=== PATIENT | female | born 1930 | race Caucasian/White ===

== ENCOUNTER 2016-12-26 16:23 | Inpatient (IN) ==
[2016-12-26] MEDS ORDERED: DEPO-MEDROL IM ONE (17:37)
[2016-12-26] MEDS ORDERED: ALBUTEROL NEB INH ONE (17:40)
[2016-12-26 17:59] LABS: MANUAL DIFF NEEDED? NO
[2016-12-26 18:06] LABS: BASO% 0.4 % (0.0-0.8); EOS# 0.43 X1000 (0.0-0.7); EOS% 4.8 % (0.0-10.0); HEMATOCRIT 37.7 % (37.0-47.0); HEMOGLOBIN 12.9 g/dL (12.0-16.0); LYMPH# 1.11 X1000 (1.2-3.4); LYMPH% 12.4 % (20.5-51.1); MCH 34.1 PG (27-31); MCHC 34.2 g/dL (33-37); MCV 99.7 FL (81-99); MONO# 0.78 X1000 (0.11-0.59); MONO% 8.7 % (1.7-9.3); MPV 10.9 FL (7.4-10.4); NEUT% 73.7 % (42.2-75.2); PLT 224 X1000 (130-400); RBC 3.78 XMIL (4.2-5.4)
[2016-12-26 18:22] LABS: AGAP 14; BUN 12 mg/dL (8-22); CALCIUM 9.2 mg/dL (8.8-10.2); CHLORIDE 94 mmol/L (98-107); COSMO 269; POTASSIUM 4.8 mmol/L (3.5-5.1); SODIUM 135 mmol/L (136-145); TCO2 27 mmol/L (25-35)
[2016-12-26] MEDS ORDERED: AFRIN NASAL SPRAY NAS ONE (19:03)
[2016-12-26] MEDS ORDERED: LASIX IV ONE (19:03)
[2016-12-26] MEDS ORDERED: DUONEB (A & A) INH ONE (19:22)
--- NOTE | 2016-12-26 19:26 | PROVIDER DOCUMENTATION ---
HPI-Respiratory General - General Chief Complaint: Shortness of Breath Stated Complaint: SOB Time Seen by Provider: 12/26/16 19:05 Source: patient Allergies/Adverse Reactions: Patient Allergies Allergy/AdvReac Type Severity Reaction Status Date / Time cephalexin monohydrate * Allergy SHORTNESS Verified 12/26/16 16:45 [From Keflex] OF BREATH erythromycin base Allergy SWELLING Verified 12/26/16 16:45 meperidine HCl * Allergy SHORTNESS Verified 12/26/16 16:45 [From Demerol] OF BREATH moxifloxacin HCl * Allergy SHORTNESS Verified 12/26/16 16:45 [From Avelox] OF BREATH Penicillins Allergy SWELLING Verified 12/26/16 16:45 Home Medications: Home Medication List Medication Instructions Recorded Confirmed Last Taken Type Albuterol Sulfate Inhaler 8 gm INH PRN PRN 12/26/16 12/26/16 12/26/16 History [Ventolin Hfa] Aspirin [Aspir-Low] 81 mg PO DAILY 12/26/16 12/26/16 12/26/16 History Ipratropium/Albuterol INH 120 puff .SEE ORDER PRN PRN 12/26/16 12/26/16 History [Combivent Respimat Inhaler] Metoprolol Succinate E.r. [Toprol 25 mg PO DAILY 12/26/16 12/26/16 12/26/16 History Xl] - History of Present Illness-Resp Nature of Presenting Problem: 86 yof c/o SOB, wheezing and feels like she cant get any oxygen at the moment. Quality of Pain: reports: none Severity in ED: reports: moderate Onset/Duration: reports: 2 days ago Timing: reports: still present Review of Systems - Adult - REVIEW OF SYSTEMS - ADULT Constitutional: reports: see HPI Eyes: reports: no symptoms reported Ears, Nose, Mouth & Throat: reports: no symptoms reported Cardiovascular: reports: no symptoms reported Respiratory: reports: see HPI, cough, dyspnea on exertion, shortness of breath, wheezing Gastrointestinal: reports: no symptoms reported Genitourinary: reports: no symptoms reported Musculoskeletal: reports: no symptoms reported Integumentary: reports: no symptoms reported All Other Systems: Reviewed and Negative Past History - Adult - PAST MEDICAL HISTORY-ADULT Review of Records: reports: Old Records Reviewed, Nursing Assessment Review, Medications Reviewed, Social history reviewed & non-contributory. Physical Exam-General - PHYSICAL EXAM-ADULT Initial Vital Signs Reviewed: Yes - CONSTITUTIONAL General Appearance: appears well, alert, moderate distress (due to SOB) - EYES Eyes: PERRL/EOMI, pink conjunctivae - HEAD, EARS, NOSE, MOUTH & THROAT HENMT: normocephalic/atraumatic, moist mucous membranes, normal ENT inspection, TMs normal, pharynx normal - NECK Neck: non-tender, full range of motion, supple, normal inspection - RESPIRATORY Respiratory: chest non-tender, no pleuratic chest pain, respiratory distress, decreased breath sounds, wheezing - CARDIOVASCULAR Cardiovascular: normal peripheral pulses, no edema, no gallop, no JVD, no murmur - GASTROINTESTINAL (ABDOMEN) Abdominal Exam: normal bowel sounds, non tender, soft - LYMPHATIC Lymphatic: no adenopathy - MUSCULOSKELETAL Back Exam: normal inspection, no CVA tenderness, no vertebral tenderness Extremity: normal range of motion, non-tender, normal gait, normal inspection, no pedal edema, no calf tenderness, normal capillary refill - SKIN Integumentary: normal color, normal turgor, warm/dry - NEUROLOGIC Neurologic: grossly normal - PSYCHIATRIC Psych/Mental Status: normal mood/affect, normal thought content, normal thought process, oriented x 3 Progress - PLAN OF CARE/RESULTS Progress/Plan/Lab Results: Vital Signs - 8 hr 12/26/16 16:35 12/26/16 17:39 12/26/16 18:54 Temperature 98.5 F Pulse Rate 99 H 102 H 109 H Respiratory Rate 31 H 28 H 25 H Blood Pressure 155/77 149/59 O2 Sat by Pulse Oximetry 98 92 L 98 12/26/16 19:28 12/26/16 19:35 Temperature 97.9 F Pulse Rate 109 H Respiratory Rate 30 H Blood Pressure 165/115 O2 Sat by Pulse Oximetry 100 Laboratory Results - last 24 hr 12/26/16 12/26/16 17:55 17:55 WBC 8.93 RBC 3.78 L Hgb 12.9 Hct 37.7 MCV 99.7 H MCH 34.1 H MCHC 34.2 RDW Std Deviation 13.1 Plt Count 224 MPV 10.9 H Immature Gran % (Auto) 0.0 Neut % (Auto) 73.7 Lymph % (Auto) 12.4 L [place] % (Auto) 8.7 Eos % (Auto) 4.8 Baso % (Auto) 0.4 Immature Gran # (Auto) 0.00 Neut # (Auto) 6.57 H Lymph # (Auto) 1.11 L [place] # (Auto) 0.78 H Eos # (Auto) 0.43 Baso # (Auto) 0.04 Sodium 135 L Potassium 4.8 Chloride 94 L Carbon Dioxide 27 Anion Gap 14 BUN 12 Creatinine 0.6 Estimated GFR/1.73 m2 > 60 BUN/Creatinine Ratio 20 Glucose 86 Calculated Osmolality 269 Calcium 9.2 Orders Category Date Time Status Oxygen Therapy- ED Nursing DIRECTED Care 12/26/16 17:39 Active Resuscitation Status Routine Care 12/26/16 19:07 Ordered Saline Loc NOW Care 12/26/16 19:02 Active CHEST-2 VIEWS [RAD] Stat Exams 12/26/16 17:36 Taken ABG [RESP] Routine Lab 12/26/16 19:23 Ordered BASIC METABOLIC PANEL [CHEM] Stat Lab 12/26/16 17:55 Completed CBC WITH DIFF [HEME] Stat Lab 12/26/16 17:55 Completed Albuterol 2.5MG/Ipratrop 0.5MG [Duoneb (A & A)] Med 12/26/16 19:22 Discontinued 3 ml INH NOW ONE Albuterol [Albuterol Neb] Med 12/26/16 17:40 Discontinued 1.25 mg INH NOW ONE Furosemide [Lasix] Med 12/26/16 19:03 Discontinued 20 mg IV NOW ONE Methylprednisolone Acetate [Depo-Medrol] Med 12/26/16 17:37 Discontinued 40 mg IM NOW ONE Oxymetazoline Nasal [place] [Afrin Nasal [place]] Med 12/26/16 19:03 Discontinued 1 ml LAURA NOW ONE Aerosol Treatments Routine Oth 12/26/16 17:41 Completed Aerosol Treatments Routine Oth 12/26/16 19:22 Active Aerosol Treatments Stat Oth 12/26/16 17:41 Completed Aerosol Treatments Stat Oth 12/26/16 19:22 Active Transfer/Admit Order [TRANSFER] Routine Transfer 12/26/16 19:07 Ordered PT seen by MLP in ED due to distress and needing something to help her breathing. This is Dr. Franco patient and will be admitted by him. Result Diagrams: 12/26/16 17:55 12/26/16 17:55 Departure - Departure Time of Disposition Decision: 19:38 DIAGNOSIS: Shortness of breath Disposition: ADMITTED INPATIENT 09 Certified Medical Emergency: Emergent Condition: Stable Referrals and Follow-Ups: Jay Osorio MD [Primary Care Provider] - Attestation - Physician/ YOSVANY Attestation Patient care was provided by Advanced Practice Provider:: Yes Advanced Practice Provider:: Alex Shoemaker Advanced Practice Provider documentation review:: The Mid-level provider documentation, treatment plan and medical decision making was reviewed by the physician who agrees with all treatment and medical decision making by the MLP. The physician spent face to face time with patient:: Yes (Dr. Osorio) Advanced Practice Provider documentation review:: The physician spent face to face time with this patient and agrees with all MLP documentation, treatment, and medical decision making by the MLP. See provider notes for further information.
[2016-12-26 19:57] LABS: ALLEN TEST YES; BLOOD TYPE ARTERIAL; DRAW SITE R BRACHIAL; METHB 1.8 % (0.0-1.5); O2(CT) 16.2 mL/dL (15.0-23.0); PCO2(98.6) 45 mmHg (35-45); PO2(98.6) 60 mmHg (60-100); SAMPLE BLOOD; SAO2 94.8 % (95.0-100.0); THB 12.7 g/dL (11.5-17.4); pH(98.6) 7.42 (7.35-7.45)
[2016-12-26 19:58] LABS: MODALITY CANNULA
--- NOTE | 2016-12-26 20:58 | HISTORY AND PHYSICAL ---
CHIEF COMPLAINT: Nasal congestion and shortness of breath. PRESENT ILLNESS: Mrs. Lewis is an 86-year-old white female with a long history of cigarette smoking and chronic obstructive pulmonary disease, but no recent hospital admissions. She presented to the emergency room this afternoon with a three to four-day history of progressive shortness of breath that did not respond to her usual albuterol or Combivent inhalers. She has also had several days of fairly increasingly severe nasal congestion, unable to breathe through her nose at all. She has a history of using Thien-Synephrine nose spray several times a day for perhaps the last year, although she admits it has been more frequent in the last 3-4 days. She has some persistent cough, but no sputum production. Has noticed chest tightness and some soreness in her chest from coughing. She has some oxygen at home which she uses mainly at night as needed in the past, but feels it has been ineffective due to her nose be and stuffed up in the nasal cannula. Earlier today she called my office wanting a prescription for a mask for her home O2. Evaluation in the emergency room, she has had a relatively unremarkable chest x-ray with some basically clear lung gonzalez with increased pulmonary vascular redistribution and perhaps tiny bilateral pleural effusions and somewhat suspicious for congestive heart failure, as well as chronic obstructive pulmonary disease. CBC and chemistry profile were unremarkable. PAST MEDICAL HISTORY: Previous history of paroxysmal atrial tachycardia, but no recent episodes on long-term low-dose metoprolol. HOME MEDICATIONS: Combivent, Respimat inhaler 2 puffs q.i.d., Toprol-XL 25 mg q.a.m., aspirin 81 mg daily. ALLERGIES: To cephalexin and erythromycin base, demerol, Avelox, and penicillins. FAMILY HISTORY: Noncontributory. SOCIAL HISTORY: She is a and lives alone. 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 She is normally independent in her activities of daily living and has no shortness of breath is not generally activity limiting symptom for her. REVIEW OF SYSTEMS: General: No headache, fever, chills, night sweats, or weight loss. HEENT Examination: Vision and hearing are adequate without recent changes. Respiratory: As above. No history of hemoptysis. Cardiovascular: No recent palpitations. No history of ischemic heart disease or congestive heart failure. No history of valvular heart disease. She had a fairly unremarkable echocardiogram done 12 years ago, but has not had a reason to get one since. Gastrointestinal: Appetite has been average and she says she is rarely hungry but eats to stay alive. No nausea, vomiting, diarrhea, constipation, melena, or bright red blood per rectum. Genitourinary: No dysuria, nocturia, or increased frequency of urination. Neurologic: No history of strokes or seizures. Psychiatric: No history of memory or mood disorders. PHYSICAL EXAMINATION: VITAL SIGNS: She is afebrile pulses at 99, respirations 31, blood pressure 155/77. O2 sat is 96% on 2 L nasal cannula. GENERAL APPEARANCE: Petite elderly white female who is sitting bolt upright on a stretcher with mild to moderate respiratory effort apparent from across the room. SKIN: Warm, pink, and dry without cyanosis. HEENT: Pupils equal, round, reactive to light. Extraocular movements intact. Oropharynx is benign. Nasal mucosa is pale and edematous with no visible pathway on speculum exam. NECK: Supple with no jugular venous distention, adenopathy, or thyromegaly. CHEST EXAMINATION: Initially a few wheezes. After one half strength albuterol treatment, she seemed worse with increased wheezing and reduced air movement. I am not appreciating any crackles. Breath sounds are symmetric. CARDIOVASCULAR: Regular tachycardia with occasional premature ventricular contractions. No S3, S4, or murmurs. ABDOMEN: Soft, flat, nontender, with active bowel sounds. EXTREMITIES: She has somewhat puffy ankles without actual edema. There is no cyanosis or clubbing. NEUROLOGIC EXAMINATION: She is alert. Recognizes me. Has good memory and mental status seems entirely normal. Cranial nerve examination is unremarkable. She moves all extremities on command. Gait is not tested. DATABASE: White blood count 8,900, hemoglobin 12.9, hematocrit 37.7%. Platelet count is normal. Sodium 135, BUN 12, creatinine 0.6, glucose 86. Chest x-ray, as noted above. ASSESSMENT: 1. Acute dyspnea with nasal congestion, probably viral upper respiratory infection with exacerbation of chronic obstructive pulmonary disease. 2. Possible congestive heart failure with chest x-ray suggesting this. We will review with radiologist in the morning. 3. History of paroxysmal atrial tachycardia, currently sinus tachycardia with occasional premature ventricular contractions. TREATMENT PLAN: Admit for intravenous steroids, oral antibiotics, around the clock nebulizer treatments, and low-flow nasal O2. She should be better in a day or two and able to return home. cc: Jay Osorio MD
[2016-12-26] MEDS ORDERED: AMBIEN PO PRN (22:23)
[2016-12-26] MEDS ORDERED: TYLENOL PO PRN (22:23)
[2016-12-26] MEDS: HEPARIN SUBQ SCH (23:05)
[2016-12-26] MEDS: ALBUTEROL NEB INH SCH (23:20)
[2016-12-27] MEDS: DOXYCYCLINE PO SCH ×3 (00:23→21:12)
[2016-12-27] MEDS: ALBUTEROL NEB INH SCH ×6 (03:35→23:55)
[2016-12-27] MEDS: AFRIN NASAL SPRAY NAS SCH ×2 (07:34→18:03)
[2016-12-27] MEDS: SOLU-MEDROL IV SCH ×2 (07:34→18:04)
[2016-12-27 07:38] LABS: AGAP 10; BUN 10 mg/dL (8-22); CHLORIDE 94 mmol/L (98-107); COSMO 270; POTASSIUM 4.9 mmol/L (3.5-5.1); SODIUM 135 mmol/L (136-145); TCO2 31 mmol/L (25-35)
--- NOTE | 2016-12-27 07:39 | Diag Imaging Result Document ---
PROCEDURE NAME: CHEST-2 VIEWS - 12/26/2016 CHEST X-RAY, 2 VIEWS: COMPARISON: 02/17/2015. FINDINGS: Stable hyperexpanded lungs compatible with advanced COPD. Stable calcified granulomas bilaterally. There are new Vicky B lines in the lung bases suggesting interstitial pulmonary edema. There is also pulmonary vascular congestion. Heart size is slightly enlarged. IMPRESSION: Cardiomegaly and mild pulmonary edema. Advanced COPD.
[2016-12-27] MEDS ORDERED: LASIX IV ONE (08:20)
[2016-12-27] MEDS: HEPARIN SUBQ SCH ×2 (08:42→21:12)
[2016-12-27] MEDS ORDERED: TOPROL XL PO SCH (09:00)
--- NOTE | 2016-12-27 09:46 | EKG Report ---
Test Performed on : 12/27/2016 09:32:59 AM Test Reason : CP Blood Pressure : / mmHG Vent. Rate : 096 BPM Atrial Rate : 096 BPM P-R Int : 172 ms QRS Dur : 074 ms QT Int : 374 ms P-R-T Axes : 086 -35 079 degrees QTc Int : 472 ms Sinus rhythm. with frequent premature ventricular complexes. Left axis deviation Anteroseptal infarct , age undetermined Abnormal ECG No previous ECGs available Confirmed by Devon VICK, Jay Ruiz ([id number]) on 12/27/2016 8:40:30 PM
[2016-12-28] MEDS ORDERED: ATIVAN IV ONE (00:46)
[2016-12-28] MEDS: ALBUTEROL NEB INH SCH ×5 (04:48→19:48)
[2016-12-28] MEDS ORDERED: ATIVAN PO ONE (05:35)
[2016-12-28] MEDS: AFRIN NASAL SPRAY NAS SCH (06:12)
[2016-12-28] MEDS: SOLU-MEDROL IV SCH (06:12)
[2016-12-28] MEDS ORDERED: SOLU-MEDROL IV ONE (07:51)
[2016-12-28] MEDS ORDERED: ATIVAN PO PRN (07:56)
[2016-12-28] MEDS: HEPARIN SUBQ SCH ×2 (08:09→21:32)
[2016-12-28] MEDS: LASIX IV SCH (08:09)
[2016-12-28] MEDS ORDERED: ALBUTEROL NEB INH SCH (09:00)
[2016-12-28] MEDS: ATROVENT NEB INH SCH ×3 (09:20→19:48)
[2016-12-28] MEDS ORDERED: HALDOL IM ONE (11:14)
[2016-12-28 12:24] LABS: ALLEN TEST NO; BE 6.5 mmoll (-3.0-3.0); BLOOD TYPE ARTERIAL; DRAW SITE R BRACHIAL; METHB 1.8 % (0.0-1.5); O2(CT) 17.1 mL/dL (15.0-23.0); PO2(98.6) 66 mmHg (60-100); SAMPLE BLOOD; SAO2 95.6 % (95.0-100.0); THB 13.3 g/dL (11.5-17.4); pH(98.6) 7.31 (7.35-7.45)
[2016-12-28 12:26] LABS: MODALITY CANNULA; PCO2(98.6) 70 mmHg (35-45)
[2016-12-28] MEDS ORDERED: ATIVAN IV PRN (14:51)
[2016-12-28] MEDS ORDERED: SOLU-MEDROL IV SCH ×2 (15:00→20:00)
--- NOTE | 2016-12-28 15:17 | ECHO REPORT ---
ORDER DATE: 12/27/2016 INTERPRETING PHYSICIAN: Dr. Srinivasa Villalpando ECHOCARDIOGRAPHIC MEASUREMENTS: Interventricular septum: 1.3 cm. Left ventricular posterior wall: 1.3 cm. Diastolic diameter: 3.5 cm. Left atrium: 4.4 cm. Aortic root: 2.6 cm. SUMMARY OF THE 2-DIMENSIONAL IMAGIN. Normal left ventricular cavity size. Estimated ejection fraction of 65-70%. There is left ventricular hypertrophy. 2. Aortic valve leaflets are calcified. Mitral valve was normal. Tricuspid valve was normal. Pulmonic valve was normal. 3. Peak velocity across the aortic valve was 3.3 m/sec. Aortic valve area by VTI was 3.1 square cm. There is a mean gradient of 22 mmHg. There is mild aortic stenosis. 4. There is severe mitral regurgitation. There is moderate tricuspid regurgitation. Peak velocity across the tricuspid valve was 3.5 m/sec. Pulmonary artery systolic pressure 56 mmHg. There is pulmonary arterial hypertension. 5. There is anterior echo-free space, small, suggestive of pericardial fat pad. There is no obvious intracardiac mass or thrombus seen. cc: MD Jay Bates MD
[2016-12-28 15:49] LABS: ALLEN TEST YES; BE 9.9 mmoll (-3.0-3.0); BLOOD TYPE ARTERIAL; DRAW SITE R RADIAL; METHB 1.6 % (0.0-1.5); O2(CT) 17.3 mL/dL (15.0-23.0); PO2(98.6) 178 mmHg (60-100); SAMPLE BLOOD; SAO2 100.7 % (95.0-100.0); THB 12.5 g/dL (11.5-17.4); pH(98.6) 7.38 (7.35-7.45)
[2016-12-28 15:51] LABS: MODALITY BI PAP; PCO2(98.6) 63 mmHg (35-45)
--- NOTE | 2016-12-28 15:57 | Diag Imaging Result Document ---
PROCEDURE NAME: CHEST-PORTABLE - 12/28/2016 PORTABLE CHEST X-RAY: COMPARISON: 12/26/2016. FINDINGS: Lung volumes are lower. Stable COPD changes. There is cardiomegaly and pulmonary vascular congestion. There is decrease in the interstitial pulmonary edema. IMPRESSION: COPD. Decrease in the pulmonary edema.
[2016-12-28] MEDS ORDERED: LASIX IV ONE ×2 (18:34→23:00)
[2016-12-28 18:35] LABS: URINE MICRO REVIEW NEEDED? NO; URINE SOURCE CATH
[2016-12-28 18:42] LABS: BILIRUBIN URINE NEGATIVE (NEGATIVE); BLOOD URINE NEGATIVE (NEGATIVE); COLOR YELLOW; GLUCOSE URINE NEGATIVE (NEGATIVE); LEUKOCYTES URINE TRACE (NEGATIVE); NITRITE URINE NEGATIVE (NEGATIVE); PROTEIN URINE TRACE mg/dL (NEGATIVE); SP GRAVITY URINE 1.009; TURBIDITY URINE HAZY (CLEAR); UR EPITHELIAL CELLS <10 /HPF (<10); URINE BACTERIA 3+ /HPF; URINE CULTURE NEEDED? YES; URINE RBC <10 /HPF (<10); URINE WBC <10 /HPF (<10); UROBILINOGEN URINE NORMAL (NORMAL)
--- NOTE | 2016-12-28 19:33 | CONSULTATION ---
DATE OF CONSULTATION: 12/28/2016 IMPRESSION: 1. Acute systolic heart failure in the setting of severe mitral regurgitation. There is also a component of cor pulmonale related to pulmonary hypertension with underlying chronic obstructive pulmonary disease and mitral regurgitation. 2. Severe chronic obstructive pulmonary disease requiring chronic home oxygen. 3. History of previous atrial tachycardia. RECOMMENDATIONS: 1. Diurese further if there still remains some signs of volume overload. 2. Add low-dose angiotensin converting enzyme inhibitor as tolerated. 3. Conservative cardiovascular care overall given patient's age and apparent frailty. HISTORY: This 86-year-old, white female, with a past history of chronic cigarette use and severe COPD was admitted with worsening dyspnea refractory to her usual approaches to remedy COPD exacerbation. She has not been hospitalized in some time and so this is unusual for her. She has had progressive dyspnea over the past 4 days or so. There is some associated sinus congestion and cough but no significant sputum production. There is also some chest tightness. She has not noted any swelling. She is on chronic home oxygen therapy. She was treated for COPD exacerbation as an outpatient but failed to improve and came to the hospital for this reason. She has been found to have some signs of congestive heart failure including pulmonary vascular congestion. B- type natriuretic peptide level is significantly elevated. She is being diuresed cautiously. Echocardiography indicated severe mitral regurgitation and mild aortic stenosis. Left ventricular ejection fraction is normal. She is currently on BiPAP. PAST MEDICAL HISTORY: 1. Severe COPD. 2. Paroxysmal atrial arrhythmias. ALLERGIC: She is allergic or intolerant to Keflex, erythromycin, Demerol, Avelox and penicillin. SOCIAL HISTORY: She is a and lives alone. 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 FAMILY HISTORY: Negative for premature coronary disease. REVIEW OF SYSTEMS: Pulmonary: Noteworthy for dyspnea and nonproductive cough. Gastrointestinal: Negative. Constitutional: Negative for fever. Remainder of review of systems negative/noncontributory with 14 total systems reviewed. PHYSICAL EXAMINATION: Vital Signs: Elderly white female, wearing BiPAP with mild respiratory discomfort and increased respiratory rate. Blood pressure 110-115/70 . Heart rate 108 and regular with ECG monitor showing sinus tachycardia. HEENT Examination: Extraocular movements intact. Mucous membranes are moist. Neck: Supple. Jugular distention is evident consistent with elevated central venous pressure. Chest: Auscultation of the chest reveals diminished air movement bilaterally with scant wheezing. Cardiac Examination: Reveals a regular rate and rhythm without appreciable murmur or gallop. Abdomen: Soft, nontender. Bowel sounds are normal. Extremities: Without edema. Neurologic Examination: Reveals her to be alert and oriented. Speech is fluent. She moves all 4 extremities equally well. LAB DATA: Remarkable for significantly elevated B type nitrate peptide level of 3666. White blood cell count on presentation was 8.9, hematocrit 37, BUN is 10, creatinine 0.6. cc: MD Jay Antonio MD
[2016-12-28] MEDS: CAPOTEN PO SCH (21:31)
[2016-12-28] MEDS: ATIVAN PO SCH (21:32)
--- NOTE | 2016-12-28 23:01 | CONSULTATION ---
DATE OF CONSULTATION: 12/28/2016 REQUESTING PHYSICIAN: Dr. Jay Osorio. REASON FOR CONSULTATION: Acute on chronic respiratory failure. HISTORY OF PRESENT ILLNESS: Ms Lewis is an 86-year-old white female, with severe COPD, who was admitted through the emergency room, on 12/26/2016, with increasing shortness of breath. Chest x- ray, revealed cardiomegaly with some increase in heart size over the last 2 years, along with increased vascular congestion. This evening, she developed progressive respiratory distress, and an arterial blood gas revealed a pH 7.31, pCO2 of 70, pCO2 of 66. She was transferred to the intensive care unit and placed on Bi-PAP, and received a diuretic. She did not tolerate the Bi- PAP, and this was subsequently removed. Her shortness of breath has improved with diuresis. Family reports that she has been having episodes of "breathing attacks" over the last 6 to 12 months, and they have become progressive and more severe. Episodes typically occur at night, when she is in the bed. It improves when she sits up and uses a fan and her oxygen. She underwent echocardiogram during this hospitalization, which revealed moderate pulmonary hypertension along with severe mitral regurgitation. PAST MEDICAL HISTORY: Problem list: 1. Severe COPD with prior tobacco use. 2. Chronic hypoxemic respiratory failure. 3. Hypertension. 4. History of paroxysmal atrial tachycardia. SOCIAL HISTORY: Prior tobacco use. 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 She currently has a granddaughter who lives in and stays with her 24 hours a day. REVIEW OF SYSTEMS: Negative except as noted in the HPI. PHYSICAL EXAMINATION: General: Reveals a frail, chronically ill-appearing, white female, with a BMI of less than 19. vital signs: BP 146/82, heart rate 106, respiration rate 26, oxygen saturation 95% on 2 L. HEENT: Pupils are equal and reactive. Oropharynx is clear. Neck: Supple. Chest: Reveals prolonged expiratory phase with faint distant wheezing. Cardiac: Distant heart sounds. Normal S1, normal S2. Severe mitral regurg cannot be appreciated on examination. Abdomen: Soft. Back: Reveals trace edema. Extremities: Reveal trace to 1+ edema. LABORATORIES: Chest x-ray reveals COPD, cardiomegaly, and pulmonary vascular congestion, but decrease in edema. IMPRESSION: An 86-year-old with severe COPD, acute hypoxemic and hypercapnic respiratory failure, which may have been triggered by a combination of the pulmonary edema, due to severe mitral regurgitation, and to acute cor pulmonale. The patient is currently reluctant to use the Bi-PAP. She also refuses to have a Foster catheter placed. RECOMMENDATIONS: 1. Continue diuretics as tolerated. 2. Continue oxygen to maintain saturation greater than 90%. 3. Would decrease steroid dosing to prevent steroid psychosis in an elderly patient. 4. Medication adjustment for valvular abnormalities as per Cardiology. 5. With progressive symptomatology over the last year, her prognosis is guarded, and if she has continued decline in her performance status, hospice could be considered at that juncture. cc: MD Jay Nelson MD
[2016-12-29 05:16] LABS: ALLEN TEST YES; BE 13.6 mmoll (-3.0-3.0); BLOOD TYPE ARTERIAL; DRAW SITE R RADIAL; METHB 1.9 % (0.0-1.5); O2(CT) 16.3 mL/dL (15.0-23.0); PO2(98.6) 97 mmHg (60-100); SAMPLE BLOOD; SAO2 99.3 % (95.0-100.0); THB 12.1 g/dL (11.5-17.4); pH(98.6) 7.49 (7.35-7.45)
[2016-12-29 05:17] LABS: MODALITY CANNULA; PCO2(98.6) 51 mmHg (35-45)
[2016-12-29 06:06] LABS: HEMATOCRIT 36.8 % (37.0-47.0); HEMOGLOBIN 12.6 g/dL (12.0-16.0); MCH 34.4 PG (27-31); MCHC 34.2 g/dL (33-37); MCV 100.5 FL (81-99); MPV 11.5 FL (7.4-10.4); RBC 3.66 XMIL (4.2-5.4)
[2016-12-29] MEDS: CAPOTEN PO SCH (06:06)
[2016-12-29] MEDS: SOLU-MEDROL IV SCH ×2 (06:06→17:37)
[2016-12-29 07:01] LABS: AGAP 17; ALBUMIN 3.9 g/dL (3.5-5.0); ALKALINE PHOSPHATASE 76 U/L (32-104); BUN 26 mg/dL (8-22); CHLORIDE 90 mmol/L (98-107); COSMO 280; GOT 37 U/L (10-30); GPT 67 U/L (10-36); MAGNESIUM 2.2 mg/dL (1.5-2.7); POTASSIUM 3.9 mmol/L (3.5-5.1); SODIUM 137 mmol/L (136-145); TCO2 30 mmol/L (25-35); TOTAL BILIRUBIN 0.33 mg/dL (0.20-1.00); TOTAL PROTEIN 7.3 g/dL (6.3-8.3)
--- NOTE | 2016-12-29 07:23 | Diag Imaging Result Document ---
PROCEDURE NAME: CHEST-PORTABLE - 12/29/2016 PORTABLE CHEST X-RAY: COMPARISON: 12/28/2016. FINDINGS: There is continued decrease in the interstitial pulmonary edema. Stable COPD changes. Stable pulmonary scarring. IMPRESSION: Continued improvement in the pulmonary edema.
[2016-12-29] MEDS: ATROVENT NEB INH SCH ×3 (08:15→22:53)
[2016-12-29] MEDS ORDERED: NS 250 ML IV ONE (08:30)
[2016-12-29] MEDS: HEPARIN SUBQ SCH ×2 (09:00→21:19)
[2016-12-29] MEDS: LASIX IV SCH (09:00)
[2016-12-29] MEDS: ALBUTEROL NEB INH SCH ×4 (09:34→19:21)
--- NOTE | 2016-12-29 10:45 | EKG Report ---
Test Performed on : 12/29/2016 10:03:23 AM Test Reason : irregular pulse Blood Pressure : / mmHG Vent. Rate : 140 BPM Atrial Rate : 088 BPM P-R Int : 000 ms QRS Dur : 076 ms QT Int : 314 ms P-R-T Axes : 000 000 063 degrees QTc Int : 479 ms Atrial fibrillation. with rapid ventricular response. with premature ventricular or aberrantly condu cted complexes. Anteroseptal infarct (cited on or before 27-DEC-2016) Abnormal ECG When compared with ECG of 27-DEC-2016 09:32, Atrial fibrillation. has replaced Sinus rhythm. ST now depressed in Inferior leads Confirmed by Devon VICK, Jay Ruiz ([id number]) on 12/30/2016 9:39:41 PM
--- NOTE | 2016-12-29 10:45 | PROGRESS NOTE ---
DATE: 12/29/2016 SUMMARY: Patient feeling much better this morning following additional diuresis last night. She relates that she had not slept well in over a week. She denies dyspnea or chest pain. PHYSICAL EXAMINATION: Vital Signs: Blood pressure 103/70, heart rate 116, with ECG monitor showing what appears to be sinus rhythm with paroxysms of irregular supraventricular tachycardia, either MAT versus atrial fibrillation. Neck: Jugular venous pressure appears normal. Chest: Auscultation of the chest reveals diminished breath sounds in the right base. There are some coarse crackles in the left base posteriorly. Cardiac Examination: Reveals a regular rate and rhythm without appreciable murmur or gallop. There is no evidence of peripheral edema. LAB DATA: Includes a BUN of 26, creatinine 0.6, potassium 3.9. IMPRESSION: 1. Acute systolic heart failure, now improved with diuresis. Suspect underlying valvular heart disease culprit. Echocardiography reviewed and there appears to be moderate aortic stenosis with aortic valve area of 1.2 cm2 and severe mitral regurgitation with left ventricle demonstrating an ejection fraction of 70%. Interestingly, inferior vena cava collapsed on inspiration, suggesting normal central venous pressure. 2. Moderate aortic stenosis and severe mitral regurgitation. 3. Severe chronic obstructive pulmonary disease. RECOMMENDATIONS: 1. Drop back to Lasix once daily. Consider transition to oral Lasix soon. 2. Given moderate aortic stenosis, would not push afterload reduction given the fixed nature of her afterload related to the aortic stenosis and potential for hypotension as a consequence. 3. Conservative cardiovascular management overall. cc: MD Jay Antonio MD
[2016-12-29] MEDS ORDERED: CARDIZEM IV ONE (11:41)
[2016-12-29] MEDS ORDERED: CARDIZEM 100 MG/NS 100 MG/100 ML IVPB IV SCH (11:41)
[2016-12-29] MEDS ORDERED: CARDIZEM CD PO ONE (20:15)
[2016-12-29] MEDS: SEPTRA DS PO SCH (21:19)
[2016-12-29] MEDS: ATIVAN PO SCH (21:19)
[2016-12-30] MEDS ORDERED: ATIVAN PO PRN (01:46)
[2016-12-30] MEDS: CARDIZEM CD PO SCH ×2 (02:03→21:11)
[2016-12-30] MEDS: SOLU-MEDROL IV SCH ×2 (06:04→17:36)
[2016-12-30] MEDS: ATROVENT NEB INH SCH ×3 (07:37→22:57)
[2016-12-30] MEDS: ALBUTEROL NEB INH SCH ×4 (08:09→20:13)
[2016-12-30] MEDS: SEPTRA DS PO SCH ×2 (08:20→21:12)
[2016-12-30] MEDS: HEPARIN SUBQ SCH ×2 (08:20→21:12)
[2016-12-30] MEDS ORDERED: LASIX PO SCH (09:00)
[2016-12-30] MEDS ORDERED: LASIX IV SCH (09:00)
--- NOTE | 2016-12-30 13:45 | PROGRESS NOTE ---
DATE: 12/30/2016 SUBJECTIVE: Patient relates feeling much better. She denies shortness of breath on supplemental oxygen per nasal cannula. OBJECTIVE: Vital Signs: Blood pressure 114/36, heart rate 64 and regular. Jugular venous pressure appears to be normal based on inspection of neck veins. Chest: Auscultation of the chest reveals a few coarse crackles in left base posteriorly and diminished breath sounds in the right base with somewhat diminished breath sounds diffusely. Cardiac Exam: Reveals a regular rate and rhythm without appreciable murmur or gallop. There is no evidence of peripheral edema. IMPRESSION: 1. Acute systolic heart failure now improved with diuresis. Underlying valvular heart disease with moderate aortic stenosis and severe mitral regurgitation demonstrated on echocardiography. 2. Severe COPD. 3. Transient atrial fibrillation. RECOMMENDATIONS: 1. Continue Lasix once daily orally at this point. 2. Conservative cardiovascular plan overall. Patient's condition and care plan discussed with his son. cc: MD Jay Antonio MD
[2016-12-30] MEDS: ATIVAN PO SCH (21:11)
[2016-12-31 05:11] LABS: ALLEN TEST YES; BE 15.6 mmoll (-3.0-3.0); BLOOD TYPE ARTERIAL; DRAW SITE R RADIAL; METHB 1.9 % (0.0-1.5); MODALITY CANNULA; O2(CT) 17.3 mL/dL (15.0-23.0); PCO2(98.6) 47 mmHg (35-45); PO2(98.6) 95 mmHg (60-100); SAMPLE BLOOD; SAO2 99.5 % (95.0-100.0); THB 12.8 g/dL (11.5-17.4); pH(98.6) 7.54 (7.35-7.45)
[2016-12-31] MEDS: SOLU-MEDROL IV SCH ×2 (05:12→17:21)
[2016-12-31] MEDS: ALBUTEROL NEB INH SCH ×3 (08:29→20:36)
[2016-12-31] MEDS: ATROVENT NEB INH SCH ×3 (08:30→22:29)
--- NOTE | 2016-12-31 09:03 | PROGRESS NOTE ---
DATE: 12/31/2016 SUBJECTIVE: Ms. Lewis has a history of acute congestive heart failure secondary to systolic dysfunction and aortic stenosis. She has been diuresed aggressively. She has put out nearly 4 L of fluid in the past 3 days. She reports that she is breathing much more comfortably. O2 saturations are ranging from 97% to 98% on supplemental O2. She normally wears nocturnal home oxygen. She also was admitted with an acute chronic obstructive pulmonary disease exacerbation. She is taking nebulizer treatments, and IV Solu-Medrol. Urine cultures grew out Proteus mirabilis. She is on Septra DS. She denies any fever chills nausea, vomiting, dysuria or increased urinary frequency. PHYSICAL EXAMINATION: Vital Signs: Temperature 97.9 degrees, pulse 91, respirations 18, BP 121/52. CV: Regular rate and rhythm. Lungs: Distant breath sounds with scattered end- expiratory wheezing. Abdomen: Soft, nontender with active bowel sounds. Extremities: Without edema. ASSESSMENT AND PLAN: 1. Acute congestive heart failure secondary to systolic dysfunction. 2. Acute chronic obstructive pulmonary disease exacerbation. 3. Urinary tract infection. We will continue her on a salt and fluid restricted diet. We will switch her to Lasix 40 mg daily. We will continue aggressive blood pressure control. I will recheck a PA and lateral chest x-ray today. She is still wheezing a little bit. I am going to continue ipratropium breathing treatments, supplemental O2, but I do not feel that we can back down on the IV steroids anymore today. We will continue the Bactrim DS for the underlying urinary tract infection. cc: MD Jay Segura MD
[2016-12-31] MEDS: HEPARIN SUBQ SCH ×2 (09:09→20:46)
[2016-12-31] MEDS: LASIX PO SCH (09:09)
[2016-12-31] MEDS: SEPTRA DS PO SCH ×2 (09:09→20:46)
[2016-12-31] MEDS: CARDIZEM CD PO SCH (20:45)
[2016-12-31] MEDS: ATIVAN PO SCH ×2 (20:46→20:48)
[2017-01-01] MEDS: SOLU-MEDROL IV SCH (05:26)
[2017-01-01] MEDS: ATROVENT NEB INH SCH (08:10)
[2017-01-01] MEDS: ALBUTEROL NEB INH SCH (08:10)
[2017-01-01 08:28] VITALS: BP 116/71
[2017-01-01] MEDS: LASIX PO SCH (10:07)
[2017-01-01] MEDS: HEPARIN SUBQ SCH (10:07)
[2017-01-01] MEDS: SEPTRA DS PO SCH (10:08)
[2017-01-01] MEDS ORDERED: PREDNISONE PO SCH (11:00)
--- NOTE | 2017-01-01 11:06 | Diag Imaging Result Document ---
PROCEDURE NAME: CHEST-PORTABLE - 01/01/2017 PORTABLE CHEST: Compared with 12/29/2016. FINDINGS: Heart size appears normal. There are apparent COPD changes. There has been interval decrease in perihilar infiltrates or edema. There are upper lung calcified granulomas from old granulomatous disease. There is no pleural effusion or pneumothorax identified. IMPRESSION: COPD changes. Decrease in perihilar infiltrates or edema.
[2017-01-02] MEDS ORDERED: PREDNISONE PO SCH (09:00)
[2017-01-03] MEDS ORDERED: PREDNISONE PO SCH (09:00)
[2017-01-06] MEDS ORDERED: PREDNISONE PO SCH (09:00)
== END 2017-01-01 11:11 | disposition home or self-care (01) ==
LOC: ED 16:23 → 3N 21:14 → ICU 12-28 14:39 → 3N 12-30 01:37
PROVIDERS: ADMIT Internal Medicine; ATTEND Internal Medicine

== ENCOUNTER 2017-02-15 23:22 | Inpatient (IN) ==
[2017-02-15] MEDS ORDERED: SOLU-MEDROL IV ONE (23:27)
[2017-02-15] MEDS ORDERED: ALBUTEROL NEB INH ONE (23:27)
[2017-02-15] MEDS ORDERED: DUONEB (A & A) INH ONE (23:27)
[2017-02-15 23:47] LABS: MANUAL DIFF NEEDED? NO
[2017-02-15] MEDS ORDERED: ATIVAN IV ONE (23:47)
[2017-02-15 23:52] LABS: BASO% 0.5 % (0.0-0.8); EOS# 0.51 X1000 (0.0-0.7); EOS% 3.9 % (0.0-10.0); HEMATOCRIT 37.9 % (37.0-47.0); HEMOGLOBIN 12.8 g/dL (12.0-16.0); IMM GRAN# 0.02 X1000 (0.0-0.04); IMM GRAN% 0.2 % (0.0-0.5); LYMPH# 3.04 X1000 (1.2-3.4); LYMPH% 23.5 % (20.5-51.1); MCH 33.6 PG (27-31); MCHC 33.8 g/dL (33-37); MCV 99.5 FL (81-99); MONO# 0.97 X1000 (0.11-0.59); MONO% 7.5 % (1.7-9.3); NEUT% 64.4 % (42.2-75.2); PLT 319 X1000 (130-400); RBC 3.81 XMIL (4.2-5.4)
[2017-02-16 00:42] LABS: ALLEN TEST YES; BE 12.7 mmoll (-3.0-3.0); BLOOD TYPE ARTERIAL; DRAW SITE R RADIAL; O2(CT) 16.8 mL/dL (15.0-23.0); PO2(98.6) 498 mmHg (60-100); SAMPLE BLOOD; SAO2 100.8 % (95.0-100.0); THB 11.2 g/dL (11.5-17.4); pH(98.6) 7.46 (7.35-7.45)
[2017-02-16 00:43] LABS: MODALITY BI PAP
[2017-02-16 00:44] LABS: PCO2(98.6) 54 mmHg (35-45)
[2017-02-16 00:45] LABS: AGAP 11; ALBUMIN 4.1 g/dL (3.5-5.0); ALKALINE PHOSPHATASE 107 U/L (32-104); BUN 11 mg/dL (8-22); CHLORIDE 88 mmol/L (98-107); COSMO 270; GOT 38 U/L (10-30); GPT 35 U/L (10-36); POTASSIUM 4.2 mmol/L (3.5-5.1); SODIUM 133 mmol/L (136-145); TCO2 34 mmol/L (25-35); TOTAL BILIRUBIN 0.39 mg/dL (0.20-1.00); TOTAL PROTEIN 6.9 g/dL (6.3-8.3)
[2017-02-16] MEDS ORDERED: LASIX IV ONE (00:58)
--- NOTE | 2017-02-16 01:11 | PROVIDER DOCUMENTATION ---
This chart was entered by Lucina Carpenter Scribe, acting as scribe for Donovan Herrera MD. HPI-Respiratory General - General Chief Complaint: Shortness of Breath Stated Complaint: RESP. DISTRESS Time Seen by Provider: 02/15/17 23:26 Source: patient Allergies/Adverse Reactions: Patient Allergies Allergy/AdvReac Type Severity Reaction Status Date / Time cephalexin monohydrate * Allergy SHORTNESS Verified 02/16/17 00:20 [From Keflex] OF BREATH erythromycin base Allergy SWELLING Verified 02/16/17 00:20 meperidine HCl * Allergy SHORTNESS Verified 02/16/17 00:20 [From Demerol] OF BREATH moxifloxacin HCl * Allergy SHORTNESS Verified 02/16/17 00:20 [From Avelox] OF BREATH Penicillins Allergy SWELLING Verified 02/16/17 00:20 Home Medications: Home Medication List Medication Instructions Recorded Confirmed Last Taken Type Aspirin [Aspir-Low] 81 mg PO DAILY 12/26/16 02/16/17 02/15/17 History Diltiazem C.d. [Cardizem Cd] 240 mg PO QHS #30 capsule 01/01/17 02/16/17 20:00 Rx Furosemide [Lasix] 40 mg PO DAILY tablet 01/01/17 02/16/17 02/15/17 Rx Metoprolol Succinate 25 mg PO DAILY 02/07/17 02/16/17 02/15/17 History Albuterol [Albuterol Neb] 2.5 mg INH Q4H PRN PRN 02/16/17 02/16/17 02/15/17 History - History of Present Illness-Resp Nature of Presenting Problem: 86 Y/O F presents to ED with Respiratory distress. Pt was brought in by EMS, due to Shortness of Breath Pt states that she had increased Respiratory distress starting 3 days ago. Pt idenied Fever, chills, chest pain. Severity in ED: reports: severe Onset/Duration: reports: 3 days ago Timing: reports: still present Associated Symptoms: reports: shortness of breath. denies: chest pain/soreness , fever/chills Review of Systems - Adult - REVIEW OF SYSTEMS - ADULT Constitutional: reports: no symptoms reported Eyes: denies: discharge Ears, Nose, Mouth & Throat: denies: ear pain, sinus problem, throat pain Cardiovascular: reports: edema. denies: chest pain Respiratory: reports: cough, shortness of breath, wheezing Gastrointestinal: denies: abdominal pain, diarrhea, nausea, vomiting Genitourinary: denies: dysuria, flank pain Musculoskeletal: denies: back pain, neck pain Integumentary: denies: rash Neurological: denies: headache/migraines, numbness, paresthesia Psychiatric: reports: no symptoms reported Endocrine: reports: no symptoms reported Hematologic/Lymphatic: reports: no symptoms reported Allergic/Immunologic: reports: no symptoms reported All Other Systems: Reviewed and Negative Past History - Adult - PAST MEDICAL HISTORY-ADULT Review of Records: reports: Old Records Reviewed, Nursing Assessment Review, Medications Reviewed, Social history reviewed & non-contributory. Major Childhood Illnesses: reports: denies history Cardiovascular: reports: HTN Respiratory: reports: asthma, COPD - PRIOR SURGERIES/PROCEDURES Surgical/Procedure History: reports: none - IMMUNIZATION STATUS Childhood Immunizations: See Nurse Assessment Flu Vaccine: See Nurse Assessment - SOCIAL HISTORY Smoking: less than 1 pack/day Physical Exam-General - PHYSICAL EXAM-ADULT Initial Vital Signs Reviewed: Yes - CONSTITUTIONAL General Appearance: alert, moderate distress - EYES Eyes: PERRL/EOMI, pink conjunctivae - HEAD, EARS, NOSE, MOUTH & THROAT HENMT: moist mucous membranes, normal ENT inspection, TMs normal - NECK Neck: non-tender, full range of motion, supple - RESPIRATORY Respiratory: crackles, wheezing - CARDIOVASCULAR Cardiovascular: normal peripheral pulses - GASTROINTESTINAL (ABDOMEN) Abdominal Exam: non tender, soft - MUSCULOSKELETAL Back Exam: normal inspection Extremity: normal range of motion - SKIN Integumentary: normal color, normal turgor, warm/dry - NEUROLOGIC Neurologic: grossly normal - PSYCHIATRIC Psych/Mental Status: normal mood/affect, normal thought content, normal thought process, oriented x 3 Progress - PLAN OF CARE/RESULTS Progress/Plan/Lab Results: Vital Signs - 8 hr 02/15/17 23:25 02/15/17 23:59 02/16/17 00:21 Temperature 97.6 F Pulse Rate 142 H 114 H 104 H Respiratory Rate 40 H 29 H 30 H Blood Pressure 172/130 148/75 O2 Sat by Pulse Oximetry 100 100 99 Laboratory Results - last 24 hr 02/15/17 02/15/17 02/15/17 23:20 23:30 23:30 WBC 12.94 H RBC 3.81 L Hgb 12.8 Hct 37.9 MCV 99.5 H MCH 33.6 H MCHC 33.8 RDW Std Deviation 13.6 Plt Count 319 MPV 11.0 H Immature Gran % (Auto) 0.2 Neut % (Auto) 64.4 Lymph % (Auto) 23.5 [place] % (Auto) 7.5 Eos % (Auto) 3.9 Baso % (Auto) 0.5 Immature Gran # (Auto) 0.02 Neut # (Auto) 8.33 H Lymph # (Auto) 3.04 [place] # (Auto) 0.97 H Eos # (Auto) 0.51 Baso # (Auto) 0.07 Specimen Type Sample Site pH pCO2 pO2 HCO3 Base Excess Oxyhemoglobin ABG O2 Sat (Calculated) ABG O2 Saturation ABG Carboxyhemoglobin ABG Methemoglobin Wilbert Test A-a O2 Difference Total Hemoglobin Lactate Blood Gas Modality Vent Mode FiO2 % Inspiratory BiPAP Expiratory BiPAP Sodium 133 L Potassium 4.2 Chloride 88 L Carbon Dioxide 34 Anion Gap 11 BUN 11 Creatinine 0.6 Estimated GFR/1.73 m2 > 60 BUN/Creatinine Ratio 18 Glucose 182 H Calculated Osmolality 270 Calcium 9.0 Total Bilirubin 0.39 AST 38 H ALT 35 Alkaline Phosphatase 107 H Troponin T Jeh-W-Gkelfrwtyaw Pept Total Protein 6.9 Albumin 4.1 Globulin 2.8 Albumin/Globulin Ratio 1.5 Plasma Lactate 1.8 02/15/17 02/15/17 02/16/17 23:30 23:30 00:33 WBC RBC Hgb Hct MCV MCH MCHC RDW Std Deviation Plt Count MPV Immature Gran % (Auto) Neut % (Auto) Lymph % (Auto) [place] % (Auto) Eos % (Auto) Baso % (Auto) Immature Gran # (Auto) Neut # (Auto) Lymph # (Auto) [place] # (Auto) Eos # (Auto) Baso # (Auto) Specimen Type ARTERIAL Sample Site R RADIAL pH 7.46 H pCO2 54 H* pO2 498 H HCO3 34.9 H Base Excess 12.7 H Oxyhemoglobin 98.1 ABG O2 Sat (Calculated) 16.8 ABG O2 Saturation 100.8 H ABG Carboxyhemoglobin 1.70 ABG Methemoglobin 1.0 Wilbert Test YES A-a O2 Difference 148.0 Total Hemoglobin 11.2 L Lactate 1.00 Blood Gas Modality BI PAP Vent Mode BIPAP FiO2 % 100.0 Inspiratory BiPAP 20.0 Expiratory BiPAP 8.0 Sodium Potassium Chloride Carbon Dioxide Anion Gap BUN Creatinine Estimated GFR/1.73 m2 BUN/Creatinine Ratio Glucose Calculated Osmolality Calcium Total Bilirubin AST ALT Alkaline Phosphatase Troponin T 0.036 Ref-I-Hlfrptvffcr Pept 4597 H Total Protein Albumin Globulin Albumin/Globulin Ratio Plasma Lactate Orders Category Date Time Status CHEST-PORTABLE [RAD] Stat Exams 02/15/17 23:48 Taken ABG [RESP] Routine Lab 02/16/17 00:33 Completed CBC WITH ELECTRONIC DIFF [HEME] Stat Lab 02/15/17 23:30 Completed CMP [COMPREHENSIVE METABOLIC PANEL] [CHEM] Stat Lab 02/15/17 23:30 Completed LACTATE, PLASMA [CHEM] Stat Lab 02/16/17 00:04 Completed TROPONIN T Stat Lab 02/15/17 23:30 Completed pro-bnp [PRO B-NATRIURETIC PEPTIDE] Stat Lab 02/15/17 23:30 Completed Albuterol 2.5MG/Ipratrop 0.5MG [Duoneb (A & A)] Med 02/15/17 23:27 Discontinued 3 ml INH NOW ONE Albuterol [Albuterol Neb] Med 02/15/17 23:27 Discontinued 5 mg INH NOW ONE Furosemide [Lasix] Med 02/16/17 00:58 Discontinued 40 mg IV NOW ONE Lorazepam [Ativan] Med 02/15/17 23:47 Discontinued 0.5 mg IV NOW ONE Methylprednisolone Sod Succ [Solu-Medrol] Med 02/15/17 23:27 Discontinued 125 mg IV NOW ONE Aerosol Treatments Routine Oth 02/15/17 23:27 Active Aerosol Treatments Stat Oth 02/15/17 23:27 Active BIPAP Stat Oth 02/15/17 23:27 Active EKG [EKG] Stat Ther 02/15/17 23:25 Ordered Result Diagrams: 02/15/17 23:30 02/15/17 23:30 - REASSESSMENT Reassessment #1 Time Reassessed: 01:09 (pt now sleeping and breathing much easier) Status: improving - EKG 1 Time of EKG reading by physician:: 23:57 EKG Read and Signed by:: Donovan Herrera EKG Interpretation (*Must complete 3 of following elements*): Abnormal Rate: 140 Rhythm: Sinus Tachycardia w/ 1st degree AV block with frequent PVC Dana: right (rightward) Comments: Abnormal ECG,Anteroseptal - XRAY 1 XRAY Study: Chest Impression: Abnormal Comparison with other Films: no changes (12/26/16) XRAY Interpretation: COPD Departure - Departure Time of Disposition Decision: :10 DIAGNOSIS: COPD exacerbation CHF (congestive heart failure) Qualifiers: Congestive heart failure type: unspecified congestive heart failure type Congestive heart failure chronicity: acute on chronic Qualified Code(s): I50.9 - Heart failure, unspecified Disposition: ADMITTED INPATIENT 09 Certified Medical Emergency: Emergent Condition: Fair Referrals and Follow-Ups: Jay Osorio MD [Primary Care Provider] - - Critical Care Note This patient required my direct & personal management of CC.: No This chart was documented by the indicated scribe, (Lucina Carpenter Scribrashaun) and accurately reflects the services I performed and decisions made by me, Donovan Herrera MD, as attested by the provider's signature.
[2017-02-16] MEDS: DUONEB (A & A) INH SCH ×2 (03:52→07:37)
--- NOTE | 2017-02-16 03:54 | HISTORY AND PHYSICAL ---
PRIMARY CARE PHYSICIAN: Dr. Osorio. CHIEF COMPLAINT: Shortness of breath for 3-4 days. HISTORY OF PRESENTING ILLNESS: This 86-year-old elderly female with a history of CHF, COPD, paroxysmal atrial arrhythmias, and hypertension, presented to the emergency department with 3-4 days history of worsening shortness of breath. She is apparently on home O2, however she does not wear oxygen as instructed. She was seen in the ER. She was markedly dyspneic. She was given DuoNebs and put on BiPAP, and she had some improvement. At the time of my examination, she was somewhat sleepy, and most of her history was obtained from family members. As per family,, she was having more difficulty breathing, and they were concerned, and that is why the patient presented in the emergency department. PAST MEDICAL HISTORY: Includes CHF, COPD, paroxysmal atrial arrhythmia, hypertension. PAST SURGICAL HISTORY: None. ALLERGIES: Keflex, erythromycin, Demerol, Avelox, penicillin. CURRENT MEDICATIONS: Listed in the MAR. SOCIAL HISTORY: 60+ pack years history of smoking. No history of alcohol or illicit drug use. She lives with her granddaughter. FAMILY HISTORY: No history of coronary artery disease. REVIEW OF SYSTEMS: Limited, because patient is somewhat groggy, and most of the history is obtained from family members. PHYSICAL EXAMINATION: GENERAL: An elderly female. She is currently on BiPAP. VITAL SIGNS: Temperature 97.6 degrees, pulse 142, respirations 40, blood pressure 172/130. HEENT: Atraumatic, normocephalic. Extraocular movements intact. NECK: No masses. CHEST: Rhonchi. CARDIOVASCULAR: Tachycardic. ABDOMEN: Soft. Positive bowel sounds. EXTREMITIES: Trace edema. NEUROLOGIC: She is awake and arousable. GENITOURINARY: No bladder distention. SKIN: Warm. LABORATORIES AND STUDIES: WBC 12.94, hemoglobin 12.8, hematocrit 37.9, platelets 319,000. Sodium 133, potassium 4.2, chloride 88, CO2 34, BUN is 11, creatinine 0.6, glucose is 182. ProBNP is 4597. ASSESSMENT: An 86-year-old female with a history of CHF, COPD on home oxygen, paroxysmal atrial arrhythmia, and hypertension, who presented to the emergency department with 3-4 days history of worsening shortness of breath. She was apparently put on BiPAP in the ER, and she will need hospitalization for further management. 1. Acute chronic obstructive pulmonary disease exacerbation. 2. Acute congestive heart failure exacerbation with systolic dysfunction. 3. Paroxysmal atrial arrhythmias. 4. Hypertension. PLAN: 1. We will admit patient to medical floor with telemetry. 2. We will continue with DuoNebs, IV Solu-Medrol, and continue patient on BiPAP. 3. We will continue with gentle diuresis. 4. We will restart home medication. 5. Monitor blood pressure closely. 6. Put patient on deep venous thrombosis prophylaxis with sequential compression devices. 7. Continue to follow and reassess. cc: MD Jay Chang MD
--- NOTE | 2017-02-16 05:03 | EKG Report ---
Test Performed on : 02/15/2017 11:27:53 PM Test Reason : RESP DISTRESS Blood Pressure : / mmHG Vent. Rate : 140 BPM Atrial Rate : 140 BPM P-R Int : 216 ms QRS Dur : 068 ms QT Int : 272 ms P-R-T Axes : 061 092 047 degrees QTc Int : 415 ms Sinus tachycardia. with 1st degree AV block. with frequent premature ventricular complexes. Rightward axis Anteroseptal infarct (cited on or before 27-DEC-2016) Abnormal ECG When compared with ECG of 07-FEB-2017 23:10, fusion complexes are no longer present MN interval has increased QRS axis shifted right ST now depressed in Lateral leads Unconfirmed Result
--- NOTE | 2017-02-16 07:41 | Diag Imaging Result Doc PS360 ---
EXAM: CHEST-PORTABLE HISTORY: sob TECHNIQUE: Erect AP portable at 2355 COMMENT: There is reticulonodular interstitial opacity throughout both lungs. There are particular Vicky B lines present in the lower lung gonzalez particularly on the left. There is some calcified granulomata in the right upper lobe. The heart size is not enlarged. Compared to 02/07/2017 there has been no significant change. Compared to 12/26/2016 the interstitial opacities are somewhat worse. The possibility of pulmonary edema superimposed on interstitial fibrosis is suggested. IMPRESSION: Pulmonary fibrosis, granulomatous changes and possible pulmonary edema. Electronically signed by Darrell Sevilla 02/16/2017 7:39 AM
[2017-02-16] MEDS ORDERED: SOLU-MEDROL IV SCH (08:00)
[2017-02-16] MEDS ORDERED: TOPROL XL PO SCH (09:00)
[2017-02-16] MEDS: ASPIRIN EC PO SCH (09:18)
[2017-02-16] MEDS: LASIX IV SCH (12:09)
--- NOTE | 2017-02-16 13:09 | CONSULTATION ---
DATE OF CONSULTATION: 02/16/2017 REASON FOR CONSULTATION: Cardiology was consulted for severe mitral regurgitation, recurrent heart failure. 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 She was in the emergency room 3-4 days back with shortness of breath and, subsequently, was readmitted again with acute worsening of shortness of breath. Chest x-ray suggestive of pulmonary edema. She was recently also admitted on 12/28/2016 with similar diagnosis. She complains of having some discomfort, as she puts it, on her left shoulder radiating down to her left arm and over the precordium some discomfort as well she noted with these symptoms. Since being admitted to the hospital and undergoing therapy, she feels much better than compared to when she came into the hospital. There are no palpitations. There is no syncope. REVIEW OF SYSTEMS: A 14-point review of system was done. GI System: There is no history of nausea, vomiting, diarrhea. There is no history of hemoptysis or melena. Central nervous system: No focal weakness to suggest a CVA. GI: There is no dysuria or hematuria. PAST MEDICAL HISTORY: 1. Systolic heart failure with severe mitral regurgitation. 2. Pulmonary arterial hypertension. 3. COPD requiring home oxygen. 4. History of atrial arrhythmias in the past. 5. Hypertension. ALLERGIES: She is allergic to Keflex, erythromycin, Demerol, Avelox, penicillin. She has a history of smoking; quit about 30 years ago and, in the past, she says that she just held the cigarette lit and never inhaled it. There is no history of alcohol abuse. PHYSICAL EXAMINATION: Vital Signs: Blood pressure when she came in was 170/130. Today, her blood pressure is 101/50. Cardiovascular System: Normal jugular venous pressure. First and second heart sounds were heard. There was systolic murmur. Respiratory System: A few scattered wheeze. Abdomen was soft, nontender. There was no guarding or rigidity. Bowel sounds were heard. Central nervous system: Alert and was moving all 4 extremities. Extremities: Examination revealed no pedal edema. HEENT: Atraumatic, normocephalic. Pupils were equal and reacting to light. WBC 12.9, hemoglobin 12.8, hematocrit 37.9. Chemistry: Sodium 133, potassium 4.2. BUN 11, creatinine 0.6. ProBNP 4597. Chest x-ray: Pulmonary edema. Last echocardiogram on 12/20/2016 revealed ejection fraction of 65%-70% with severe mitral regurgitation. ASSESSMENT AND PLAN: Ms. Ruben Lewis is an 86-year-old lady with history of severe mitral regurgitation, recurrent heart failure, COPD who is admitted with recurrent pulmonary edema. She is currently euvolemic. She also had episode of chest discomfort radiating to her left shoulder and arm. Given this, I had a detailed discussion with the patient regarding performing right and left heart catheterization to assess for and rule out coronary artery disease and evaluate the mitral valve. She is willing to undergo the procedure. We will set her up to have a right and left heart catheterization. We will check a BMP, CBC, and magnesium levels in the morning. Continue with her current medications. Lasix has been decreased to 40 b.i.d. WBC mildly elevated. She has received methylprednisone. I have not made any changes. She is on nebulizers for her COPD. Would recommend continuing her current medications. Thank you for the consult. We will follow hospital course. cc: MD Jay Bates MD
[2017-02-16] MEDS: ALBUTEROL NEB INH SCH ×2 (15:53→21:45)
[2017-02-16] MEDS ORDERED: LOPRESSOR PO ONE (17:07)
[2017-02-16] MEDS ORDERED: CARDIZEM CD PO SCH (21:00)
[2017-02-16] MEDS ORDERED: CORDARONE 360 MG/D5W 360 MG/200 ML IV.SOLN IV ONE (21:45)
[2017-02-16] MEDS ORDERED: CORDARONE 150 MG/D5W 150 MG/100 ML IV.SOLN IV ONE (21:45)
[2017-02-16] MEDS ORDERED: CORDARONE 540 MG in D5W 289.2 ML IV ONE (21:45)
[2017-02-16] MEDS: SOLU-MEDROL IV SCH (21:54)
[2017-02-17] MEDS: LASIX IV SCH ×2 (01:09→12:26)
[2017-02-17] MEDS: ATIVAN IV PRN ×2 (02:44)
[2017-02-17] MEDS: ALBUTEROL NEB INH SCH ×4 (03:37→19:48)
--- NOTE | 2017-02-17 05:18 | EKG Report ---
Test Performed on : 02/16/2017 6:19:09 PM Test Reason : ST with PVC Blood Pressure : / mmHG Vent. Rate : 127 BPM Atrial Rate : 062 BPM P-R Int : 000 ms QRS Dur : 074 ms QT Int : 336 ms P-R-T Axes : 000 087 092 degrees QTc Int : 488 ms Atrial fibrillation. with rapid ventricular response. with premature ventricular or aberrantly condu cted complexes. Anteroseptal infarct (cited on or before 27-DEC-2016) Abnormal ECG When compared with ECG of 15-FEB-2017 23:27, Atrial fibrillation. has replaced Sinus rhythm. Confirmed by Aníbal VICK, Javier Suarez ([id number]) on 02/18/2017 1:15:14 PM
[2017-02-17] MEDS ORDERED: LASIX IV ONE (06:23)
[2017-02-17 06:26] LABS: BASO% 0.1 % (0.0-0.8); EOS# 0.01 X1000 (0.0-0.7); EOS% 0.1 % (0.0-10.0); HEMATOCRIT 39.2 % (37.0-47.0); HEMOGLOBIN 13.1 g/dL (12.0-16.0); IMM GRAN# 0.02 X1000 (0.0-0.04); IMM GRAN% 0.2 % (0.0-0.5); LYMPH# 0.86 X1000 (1.2-3.4); LYMPH% 6.6 % (20.5-51.1); MANUAL DIFF NEEDED? YES; MCH 33.3 PG (27-31); MCHC 33.4 g/dL (33-37); MCV 99.7 FL (81-99); MONO# 0.68 X1000 (0.11-0.59); MONO% 5.2 % (1.7-9.3); MPV 11.3 FL (7.4-10.4); NEUT% 87.8 % (42.2-75.2); PLT 318 X1000 (130-400); RBC 3.93 XMIL (4.2-5.4)
[2017-02-17 06:27] LABS: INR 1.09; PROTIME 11.5 Seconds (9.2-11.7)
[2017-02-17 06:54] LABS: BANDS 6 % (0-1); LYMPHS 6 % (21-51); MONO 6 % (1-9)
[2017-02-17 06:55] LABS: BE 2.2 mmoll (-3.0-3.0); BLOOD TYPE ARTERIAL; DRAW SITE R BRACHIAL; O2(CT) 18.4 mL/dL (15.0-23.0); PO2(98.6) 93 mmHg (60-100); SAMPLE BLOOD; SAO2 97.7 % (95.0-100.0); THB 13.7 g/dL (11.5-17.4); pH(98.6) 7.25 (7.35-7.45)
[2017-02-17 06:57] LABS: MODALITY BI PAP
[2017-02-17 06:58] LABS: PCO2(98.6) 72 mmHg (35-45)
[2017-02-17 07:05] LABS: CALCIUM 8.9 mg/dL (8.8-10.2); POTASSIUM 4.1 mmol/L (3.5-5.1)
--- NOTE | 2017-02-17 07:10 | Diag Imaging Result Doc PS360 ---
EXAM: CHEST-PORTABLE HISTORY: Breathing changes TECHNIQUE: AP upright portable at 0625 COMMENT: There is perihilar and upper lobe opacity which appears slightly worse than on the previous study of 02/15/2017. There is also some apparent volume loss and interstitial opacity in the left lower lobe. Some fluid is seen in the minor fissure on the right. IMPRESSION: Worsening pulmonary edema plus minus pneumonia. Small right pleural effusion. Electronically signed by Darrell Sevilla 02/17/2017 7:07 AM
[2017-02-17] MEDS ORDERED: TOPROL XL PO SCH (09:00)
--- NOTE | 2017-02-17 09:23 | PROGRESS NOTE ---
DATE: 02/17/2017 SUBJECTIVE: This is an 86-year-old, patient of Dr. Jay Osorio. She presented yesterday with a 3 or 4-day history of shortness of breath. She has a history of congestive heart failure, COPD, paroxysmal atrial fibrillation, hypertension, apparently severe mitral regurgitation. She is on home O2, although she does not wear it as instructed. Seen in the emergency room with marked dyspnea and given DuoNebs and BiPAP with some improvement. However, yesterday evening, respiratory status seemed to decline. She has not put out much urine output and her O2 saturations have gone down. She is less responsive. They were planning to do a left heart catheterization today but or looking at it, but we will have to cancel that. Dr. Villalpando has seen her and I think Dr. Christopher has seen her as well. OBJECTIVE: General: Today, lethargic and not responding but she does respond to pain. She does move all extremities. Neck: CVP distended neck veins. Vital Signs: Temp 96.5 degrees, pulse 80, respirations 20, blood pressure 170/81, pupils are equal and round. Lungs: Clear anterolateral. Cardiovascular: Irregular rhythm and irregular rate. Monitor shows atrial fibrillation. The rate is controlled between 50s and 100. LABORATORY DATA: White count this morning, 12,960, hematocrit 39, platelet count 318,000. Chemistry: Sodium 126, potassium 4.1, chloride 80, BUN 24, creatinine 0.9, blood sugar was 305, proBNP was 4597, CPK 78, troponin was 0.021. ASSESSMENT AND PLAN: 1. Severe mitral regurgitation. Suspect some underlying coronary insufficiency. Respiratory status has diminished. They do not want intubation. We will continue to try and treat with medication. I have told the family that she appears to be getting worse. They reinforced that they do not want her on a ventilator. Her his urine output looked to be about 500 mL yesterday. 2. Present orders: She is on amiodarone drip, aspirin 81 mg a day. Getting Lasix 40 mg q.12, methylprednisone 40 mg IV q.12 hours. Metoprolol succinate 25 mg b.i.d. We will work on her afterload reduction with her mitral regurgitation and see if this will help. I will add JOSELIN inhibitor, enalapril IV and see if this will help. 3. Atrial fibrillation rate appears to be controlled. 4. Blood pressure has been fluctuating but it is running a little higher at the present time. cc: MD Jay Garland MD
[2017-02-17] MEDS ORDERED: TOPROL XL PO ONE (09:33)
--- NOTE | 2017-02-17 11:09 | EKG Report ---
Test Performed on : 02/17/2017 09:35:18 AM Test Reason : afib Blood Pressure : / mmHG Vent. Rate : 079 BPM Atrial Rate : 079 BPM P-R Int : 178 ms QRS Dur : 078 ms QT Int : 412 ms P-R-T Axes : 087 068 078 degrees QTc Int : 472 ms Sinus rhythm. with occasional premature ventricular complexes. Septal infarct (cited on or before 27-DEC-2016) Abnormal ECG When compared with ECG of 16-FEB-2017 18:19, (Unconfirmed) Sinus rhythm. has replaced Atrial fibrillation. Vent. rate has decreased BY 48 BPM Nonspecific T wave abnormality now evident in Anterior leads Confirmed by Aníbal VICK, Javier Suarez ([id number]) on 02/18/2017 1:17:16 PM
[2017-02-17] MEDS: SOLU-MEDROL IV SCH ×2 (11:16→20:26)
[2017-02-17] MEDS: ASPIRIN EC PO SCH (11:16)
[2017-02-17] MEDS: CORDARONE PO SCH ×2 (11:16→20:26)
[2017-02-17] MEDS ORDERED: SAMSCA PO ONE (12:02)
[2017-02-17] MEDS: VASOTEC IV SCH ×2 (12:27→17:17)
[2017-02-17] MEDS: LOVENOX SUBQ SCH (13:51)
--- NOTE | 2017-02-17 15:24 | ECHO REPORT ---
ORDER DATE: 02/17/2017 MEASUREMENTS: Left ventricular end-diastolic diameter 3.2, end-systolic diameter 1.9, septal thickness 1.5, left atrium 3.8, aortic root 2.8 SUMMARY: 1. Fair quality study. 2. Moderate fibrocalcific changes of trileaflet aortic valve demonstrated with severely reduced mobility but visible aortic valve opening. Peak gradient across the aortic valve is 51 mmHg with a mean gradient of 24 mmHg. Using continuity equation and left ventricular outflow tract diameter estimated 1.9 cm, the resultant calculated aortic valve area is 0.8 cm2 suggesting severe aortic stenosis. Moderate thickening of mitral valve leaflets demonstrated with severe mitral regurgitation. Tricuspid valve without structural abnormality with mild tricuspid regurgitation. The estimated systolic PA pressure by Doppler is 35-40 mmHg. Pulmonic valve without structural abnormality with mild pulmonic insufficiency. Aortic root is normal in size. 3. Normal left ventricular chamber size with moderate concentric left hypertrophy is demonstrated. Estimated left ejection fraction is greater than 70%. No regional wall motion abnormalities are evident. Left atrium is borderline enlarged. Right atrium is borderline enlarged. The right ventricle appears mildly enlarged with moderately reduced right ventricular systolic function. 4. Small echo-free anterior space, possibly small anterior pericardial effusion. 5. Appearance of inferior vena cava suggests significantly elevated central venous pressure. Inferior vena cava is dilated and does not demonstrate any inspiratory collapse. CONCLUSIONS: 1. Severe calcific aortic stenosis. 2. Severe mitral regurgitation. 3. Mild tricuspid regurgitation with mild to moderate pulmonary hypertension by Doppler. 4. Moderate concentric left hypertrophy with estimated left ejection fraction greater than 70%. 5. Borderline biatrial enlargement. 6. Mild right ventricular enlargement with reduced right ventricular systolic function. 7. Elevated central venous pressure suggested. cc: MD Maia Antonio PA Russell T. Barr, MD
[2017-02-17 19:13] LABS: AGAP 8; BUN 22 mg/dL (8-22); CALCIUM 8.4 mg/dL (8.8-10.2); CHLORIDE 88 mmol/L (98-107); COSMO 271; POTASSIUM 3.8 mmol/L (3.5-5.1); SODIUM 133 mmol/L (136-145); TCO2 37 mmol/L (25-35)
[2017-02-17] MEDS ORDERED: AYR NASAL SPRAY NAS PRN (20:12)
[2017-02-17] MEDS: TOPROL XL PO SCH (23:47)
[2017-02-18] MEDS: LASIX IV SCH ×3 (01:24→23:38)
[2017-02-18] MEDS: LOVENOX SUBQ SCH ×3 (01:24→23:38)
[2017-02-18] MEDS: VASOTEC IV SCH ×3 (01:54→12:27)
[2017-02-18] MEDS: ALBUTEROL NEB INH SCH ×4 (04:08→19:32)
[2017-02-18 06:30] LABS: FREE T4 1.36 ng/dL (0.93-1.70)
[2017-02-18 06:41] LABS: AGAP 12; BUN 21 mg/dL (8-22); CALCIUM 8.4 mg/dL (8.8-10.2); CHLORIDE 89 mmol/L (98-107); COSMO 277; MAGNESIUM 2.4 mg/dL (1.5-2.7); POTASSIUM 3.7 mmol/L (3.5-5.1); SODIUM 136 mmol/L (136-145); TCO2 35 mmol/L (25-35)
[2017-02-18 07:01] LABS: HEMATOCRIT 32.9 % (37.0-47.0); HEMOGLOBIN 10.8 g/dL (12.0-16.0); IMM GRAN# 0.02 X1000 (0.0-0.04); IMM GRAN% 0.3 % (0.0-0.5); LYMPH# 0.36 X1000 (1.2-3.4); LYMPH% 4.7 % (20.5-51.1); MANUAL DIFF NEEDED? NO; MCH 32.6 PG (27-31); MCHC 32.8 g/dL (33-37); MCV 99.4 FL (81-99); MONO# 0.36 X1000 (0.11-0.59); MONO% 4.7 % (1.7-9.3); MPV 11.7 FL (7.4-10.4); NEUT% 90.3 % (42.2-75.2); PLT 248 X1000 (130-400); RBC 3.31 XMIL (4.2-5.4)
[2017-02-18] MEDS: SOLU-MEDROL IV SCH ×3 (08:40→21:47)
[2017-02-18] MEDS: CORDARONE PO SCH ×3 (08:40→21:46)
[2017-02-18] MEDS: TOPROL XL PO SCH ×3 (08:41→21:47)
[2017-02-18] MEDS: ASPIRIN EC PO SCH (08:41)
--- NOTE | 2017-02-18 09:07 | Diag Imaging Result Doc PS360 ---
EXAM: CHEST-PORTABLE INDICATION: chf TECHNIQUE: One view COMPARISON: 02/17/2017 FINDINGS: The perihilar and upper lobe infiltrates appear to have improved during the interval. No new consolidations are appreciated. Cardiac silhouette is stable. IMPRESSION: Improvement of upper lung zone and perihilar consolidations as described. Electronically signed by Mauro Chilel 02/18/2017 9:05 AM
--- NOTE | 2017-02-18 09:48 | PROGRESS NOTE ---
DATE: 02/18/2017 SUBJECTIVE: Ms. Lewis is much better. Awake and alert. Breathing comfortably. She wants to go home. She wants to get up and walk. OBJECTIVE: Vital signs: Temperature 98.1 degrees, pulse 80, respirations 21 blood pressure 91/50. HEENT: CVP was less than 6 cm. Lungs: Clear anterior and posterior in all lung gonzalez. Cardiovascular exam: Regular rhythm and rate. A 3/6 systolic ejection murmur appreciated at the left sternal border. : Her urine output 4 L. LABS AND X-RAYS: White count 7710, hematocrit 32, platelet count of 248,000. Sodium 136, potassium 3.7, chloride 89, BUN 21, creatinine 0.7. Of note, her T4 and TSH were normal. Cortisol level also normal. Chest x-ray from this morning: Improvement upper lung zone, perihilar consolidations, perihilar upper lobe infiltrates have improved. Echocardiogram with Doppler was done yesterday and showed severe calcific aortic stenosis, severe mitral regurgitation and mild tricuspid regurgitation, mild to moderate pulmonary hypertension, moderate concentric left ventricular hypertrophy, ejection fraction greater than 70%, borderline biatrial enlargement, mild right ventricular enlargement with reduced right ventricular systolic function. EKG was in sinus rhythm yesterday at 9 o'clock. Poor R-wave progression. Suspect old septal scar and occasional PVC. ASSESSMENT AND PLAN: 1. Severe mitral regurgitation. Aortic valve peak gradient was 51 mmHg with mean gradient of 24 mmHg. The left ventricular outflow tract diameter estimated at 1.9 cm, and the resulting calculated aortic valve area was 0.8 cm2 suggesting severe aortic stenosis and also possible underlying coronary artery disease. I think we will need to pursue left heart catheterization when we are able. Of note, she has good ejection fraction, but she has some right ventricular strain as well. It seems much better than yesterday. Continue present medication. Discuss with cardiology. 2. On amiodarone, she was in atrial fibrillation. She is in sinus rhythm. She has metoprolol 25 mg b.i.d., and we are diuresing her. It seems to have responded well to diuresis. 3. Atrial fibrillation. Back in sinus rhythm. 4. Her labs: Serum creatinine 0.7, which is very encouraging. Electrolytes look good. Sodium 136, potassium 3.7, chloride 89, BUN 21, creatinine 0.7. Review of her orders: Unremarkable. I do not see any changes. She got Samsca 1 dose on the second. She is getting Lasix 40 mg IV q. 12 hours. She is on amiodarone 400 mg b.i.d., aspirin 81 mg a day. She is getting enalapril 0.625 mg IV q. 6 hours. We will see if we can get physical therapy to get her up and walk at her request. Follow her electrolytes. Renal function looks good. Explore when we can perform a left heart catheterization. cc: MD Jay Garland MD
[2017-02-18] MEDS ORDERED: TYLENOL PO PRN (09:49)
[2017-02-18] MEDS ORDERED: AFRIN NASAL SPRAY NAS PRN (09:49)
--- NOTE | 2017-02-18 12:58 | PROGRESS NOTE ---
DATE: 02/18/2017 SUBJECTIVE: Ms. Lewis reports she feels well this morning. She has no shortness of breath presently. PHYSICAL EXAMINATION: Vital Signs: She is afebrile. Heart rate of 85. Her blood pressure is 105/47, and she has had occasionals in the 80s and 90s. Her I's and O's for the course of this hospitalization appear to be total negative of 1.6 L. General: In no acute distress. Cardiovascular: She does have a regular rate and rhythm and presence of a prominent 2/6 holosystolic murmur at the left lower sternal border. Abdomen: Soft, nontender, nondistended. She has no obvious organomegaly. Skin: Warm and dry throughout. Her echocardiogram checked on the 2nd demonstrates a mean gradient of 24. Valve area was calculated at 0.8 cm2 suggesting possibly severe aortic stenosis. In addition, she had severe mitral regurgitation. Ejection fraction was greater than 70%. Her laboratory data demonstrates a white count of 7.7, hematocrit is 32.9, platelet count is 248,000. Her sodium is 136, potassium 3.7, BUN 21, creatinine 0.7. ASSESSMENT: Congestive heart failure likely secondary to valvular issues including severe MR and possibly severe . I believe right and left heart catheterization would be appropriate if the patient would consider potential intervention to the valves. I am unclear if she is willing to do this as an inpatient presently and need to consider discussion of the ultimate procedures of potential mitral regurgitation intervention as well as aortic valve intervention prior to being willing to pursue an invasive evaluation. Presently, I would not increase her rate of diuresis considering that she has had some low blood pressures. She is on Vasotec at 0.625 IV q.6. I will try to switch that over to an oral medication with lisinopril. We will continue her on the metoprolol 50 b.i.d. She continues on amiodarone at 4:00 b.i.d. which I would continue for now. cc: MD Jay Murray MD
[2017-02-18] MEDS: PRINIVIL PO SCH ×2 (19:45→21:46)
[2017-02-19] MEDS: LASIX IV SCH ×3 (00:33→23:41)
[2017-02-19] MEDS: LOVENOX SUBQ SCH ×3 (00:34→23:41)
[2017-02-19] MEDS: ALBUTEROL NEB INH SCH ×2 (03:18→08:04)
[2017-02-19] MEDS ORDERED: POTASSIUM CHLORIDE 20% LIQUID PO ONE (08:02)
[2017-02-19] MEDS: SOLU-MEDROL IV SCH ×2 (08:40→19:46)
[2017-02-19] MEDS: TOPROL XL PO SCH ×3 (08:40→21:53)
[2017-02-19] MEDS: CORDARONE PO SCH ×3 (08:40→21:53)
[2017-02-19] MEDS: ASPIRIN EC PO SCH (08:40)
--- NOTE | 2017-02-19 08:40 | PROGRESS NOTE ---
DATE: 02/19/2017 SUBJECTIVE: Ms. Lewis is feeling good. She wants to go home. She is bored. She is breathing comfortably. No chest pain. OBJECTIVE: Vital signs: Temperature 98 degrees, pulse 70, respirations 20, blood pressure 102/60. HEENT: Pupils are equal, round. Lungs: Clear in all lung gonzalez anterior, lateral, posterior. Cardiovascular: Regular rate without murmur or S3. CVP is less than 8 cm. Skin: Warm and dry. : Urine output almost 2 L. LAB: Reviewed from yesterday. CBC: Hematocrit is stable at 32. Electrolytes look good. Serum creatinine was 0.7. ASSESSMENT AND PLAN: 1. Congestive heart failure. Likely secondary to valvular issues including severe MR, possible severe . Hope to get a right and left heart catheterization when able and consider possible intervention for valves. Unclear if she is willing to pursue this as an inpatient presently. She is improving clinically. We will continue present treatment. Dr. Page is following for cardiology. Increased rate of diuresis. She is on Vasotec 0.625 IV q.6 and switch that over to oral medication. Continue her metoprolol 50 mg b.i.d. and amiodarone 400 mg b.i.d. 2. Atrial fibrillation. On amiodarone for rate control. Appears to be back in sinus rhythm. 3. Renal function looks good. 4. Encourage p.o. intake and we are increasing her activity. REVIEW OF ORDERS: I do not see any change. She is on Lasix 40 mg IV q.12, Prinivil 10 mg at bedtime, methylprednisone 40 mg IV q.12 hours, metoprolol succinate 50 mg b.i.d., aspirin 81 mg a day, amiodarone 400 mg b.i.d. I am going to decrease her methylprednisone down to 20 mg IV q.12. cc: MD Jay Garland MD
--- NOTE | 2017-02-19 13:41 | Diag Imaging Result Doc PS360 ---
EXAM: CHEST-2 VIEWS INDICATION: pulmonary edema TECHNIQUE: 2 views COMPARISON: 02/18/2017 FINDINGS: The mild consolidations bilaterally are approximately stable. There is suggestion of small bilateral effusions, largest on the left. These are probably larger or have developed during the interval. Cardiac silhouette is stable. IMPRESSION: Development of small bibasilar effusions, largest on the left. Otherwise, essentially stable chest. Electronically signed by Mauro Chilel 02/19/2017 1:39 PM
[2017-02-19] MEDS ORDERED: LASIX IV ONE (13:45)
--- NOTE | 2017-02-19 14:08 | PROGRESS NOTE ---
DATE: 02/19/2017 SUBJECTIVE: Ms. Lewis reports she is somewhat short of breath but it does not seem like it is any worse than previous. OBJECTIVE: Vital signs: She is afebrile. Heart rate 73, blood pressure 118/58. General: No acute distress. Cardiovascular: She does not seem to have any lower extremity edema. She continues to have a holosystolic murmur at the left lower sternal border. Warm and well perfused lower extremities. Chest: Exam has some mild rales in the bilateral bases. No increased work of breathing. Abdomen: Soft, nontender. Skin Exam: Warm and dry throughout. PERTINENT DATA: She had a chest x-ray performed which demonstrated small bibasilar effusions, largest on the left. Otherwise essentially stable. Mild consolidations bilaterally noted. Her laboratory data demonstrated a proBNP that bumped to 8,834 from 4,597 on the . ASSESSMENT: Congestive heart failure, most likely valvular in etiology related to aortic stenosis and severe mitral regurgitation. PLAN: I will increase her lisinopril 10 b.i.d. I will also give her an extra dose of Lasix at 40 mg IV x1. She does seem to have worsening volume overload, although her I's and O's are reportedly negative over the course of the hospitalization. I will ensure she has a BMP ordered in the morning. cc: MD Jay Murray MD
[2017-02-19] MEDS: ALBUTEROL NEB INH PRN ×3 (15:35→23:27)
[2017-02-19] MEDS: PRINIVIL PO SCH ×2 (19:47→21:53)
[2017-02-19] MEDS ORDERED: MYLICON PO PRN (22:01)
[2017-02-19] MEDS: ATIVAN IV PRN (23:38)
[2017-02-20] MEDS: LOVENOX SUBQ SCH (01:16)
[2017-02-20] MEDS: LASIX IV SCH (01:16)
--- NOTE | 2017-02-20 07:07 | EKG Report ---
Test Performed on : 02/18/2017 06:18:22 AM Test Reason : afib Blood Pressure : / mmHG Vent. Rate : 088 BPM Atrial Rate : 088 BPM P-R Int : 178 ms QRS Dur : 080 ms QT Int : 404 ms P-R-T Axes : 097 060 095 degrees QTc Int : 488 ms Sinus rhythm. with premature atrial complexes. Anteroseptal infarct (cited on or before 27-DEC-2016) Abnormal ECG When compared with ECG of 17-FEB-2017 09:35, (Unconfirmed) premature ventricular complexes. are no longer present premature atrial complexes. are now present Confirmed by Aníbal VICK, Javier Suarez ([id number]) on 02/20/2017 7:13:42 AM
[2017-02-20] MEDS: ALBUTEROL NEB INH PRN ×5 (07:54→22:15)
[2017-02-20] MEDS: SOLU-MEDROL IV SCH ×2 (08:07→20:12)
[2017-02-20] MEDS: TOPROL XL PO SCH ×2 (08:07→20:13)
[2017-02-20] MEDS: CORDARONE PO SCH (08:08)
[2017-02-20] MEDS: PRINIVIL PO SCH ×2 (08:08→20:13)
[2017-02-20] MEDS: ASPIRIN EC PO SCH (08:08)
--- NOTE | 2017-02-20 08:20 | PROGRESS NOTE ---
DATE: 02/20/2017 SUBJECTIVE: Ms. Lewis got more short of breath and had to be put back on BiPAP last night. Denies any chest pain. OBJECTIVE: Vital signs: Temp 96.9 degrees, pulse 65, respirations 30, blood pressure 102/49. HEENT: Pupils are equal, round. Neck: CVP appears less than 6 cm. Lungs: Clear in all lung gonzalez. Cardiovascular: Regular rhythm and rate without murmur or S3. Abdomen: Soft. Skin: Warm and dry. : Urine output almost 4 L. LABORATORY: Blood work this morning pending. Chest x-ray from yesterday: Development of small basilar effusions, largest on the left. ASSESSMENT AND PLAN: 1. Congestive heart failure. Most likely valvular in etiology related to aortic stenosis and severe mitral regurgitation. I have adjusted her medications yesterday. Lisinopril 10 mg b.i.d., Lasix 40 mg IV was given once the yesterday. Seems to have worsening volume overload. We will try and diurese some more today. Would like to get the information from a left heart catheterization but not sure if she is able. A long discussion with son. Will try and continue to treat medically. 2. Atrial fibrillation. She is on amiodarone. Appears to be in sinus rhythm still. 3. Renal function is good. 4. Encourage p.o. intake. cc: MD Jay Garland MD
[2017-02-20 11:05] LABS: AGAP 10; BUN 34 mg/dL (8-22); CALCIUM 8.8 mg/dL (8.8-10.2); CHLORIDE 87 mmol/L (98-107); COSMO 280; MAGNESIUM 2.4 mg/dL (1.5-2.7); POTASSIUM 4.1 mmol/L (3.5-5.1); SODIUM 135 mmol/L (136-145); TCO2 38 mmol/L (25-35)
[2017-02-20] MEDS: ELIQUIS PO SCH ×2 (12:31→20:13)
[2017-02-20] MEDS: KLOR-CON PO SCH (12:31)
--- NOTE | 2017-02-20 17:37 | Diag Imaging Result Doc PS360 ---
EXAM: CHEST-2 VIEWS HISTORY: pulmonary edema TECHNIQUE: COMPARISON: 02/19/2017 FINDINGS: The lungs are hyperexpanded. There is an increased AP diameter to the chest. No change in the small left pleural effusion. The heart is not enlarged. Mild increased interstitial markings similar to the prior exam. There are scattered granuloma. IMPRESSION: No interval improvement. Electronically signed by Misbah Anderson 02/20/2017 5:35 PM
[2017-02-20] MEDS: LASIX PO SCH (20:13)
[2017-02-20] MEDS: ATIVAN IV PRN (22:44)
[2017-02-21] MEDS: ALBUTEROL NEB INH PRN ×4 (03:36→23:08)
[2017-02-21] MEDS: KLOR-CON PO SCH (08:14)
[2017-02-21] MEDS: CORDARONE PO SCH (08:14)
[2017-02-21] MEDS: TOPROL XL PO SCH ×2 (08:14→20:05)
[2017-02-21] MEDS: ELIQUIS PO SCH ×2 (08:15→20:04)
[2017-02-21] MEDS: PRINIVIL PO SCH ×2 (08:15→20:05)
[2017-02-21] MEDS: SOLU-MEDROL IV SCH ×2 (08:15→20:04)
[2017-02-21] MEDS: LASIX PO SCH ×2 (08:15→20:04)
--- NOTE | 2017-02-21 08:55 | PROGRESS NOTE ---
DATE: 02/21/2017 SUBJECTIVE: Ms. Lewis had another spell last night. Her O2 saturations were up in the high 90s, but felt very short of breath. She feels like the shortness is right there and she points to the upper sternum at the upper bronchial level, and it lasted just an hour or 2. She was put back on the BiPAP. Is feeling better. Slept well. Feeling good this morning but family concern that she will have these spells at home. Looks like there is a good component of anxiety with this. She did take the Ativan, this helped. They would like to see what it would take to get her eligible for CPAP or BiPAP if needed. OBJECTIVE: Vital signs: Temperature 98.4, pulse 60, respirations 16, blood pressure 90/40. Lungs: Are clear in all lung gonzalez. Cardiovascular: Regular rhythm and rate without murmur or S3. Abdomen: Soft. Skin: Warm and dry. : Urine output 2375. LABS: Chemistries reviewed from the 5th. Chest x-ray from yesterday, no interval improvement. The lungs are hyperexpanded. There is increased AP diameter in the chest. No change in small left pleural effusion. Heart is not enlarged. Mild increased interstitial markings, similar to the prior x-ray. ASSESSMENT AND PLAN: 1. Congestive heart failure. Likely valvular etiology. Aortic stenosis and severe mitral regurgitation. Continue present medications. She seems to be doing fairly well. They do not want to pursue heart catheterization at this point. Would like to know about her coronary status and the severity of her aortic valve stenosis. She seems to be fairly well compensated, but we still have these spells at night, and in the evening where she has subjective dyspnea and is requiring BiPAP. Will ask Pulmonary to assist. Continue to use the Ativan for the anxiety component but my concern is if she goes home and gets these spells, she will call the ambulance and be right back here. 2. Atrial fibrillation. Is in sinus rhythm. She is on Cordarone 400 mg daily. She is on Eliquis 2.5 mg b.i.d. I am going to continue the Lasix 40 mg b.i.d., Prinivil 10 mg b.i.d. She is on methylprednisone 20 mg IV q.12, and I will cut that down. She is on metoprolol 50 mg b.i.d. cc: MD Jay Garland MD
--- NOTE | 2017-02-21 09:42 | CONSULTATION ---
DATE OF CONSULTATION: 02/21/2017 REFERRING PHYSICIAN: Dr. Sanford. CHIEF COMPLAINT: Shortness of breath. HISTORY OF PRESENT ILLNESS: This is an 86-year-old, female with a past medical history of CHF, COPD, paroxysmal atrial fibrillation, hypertension, and situational anxiety. She is being evaluated for a CHF exacerbation. She decided that she did not want a heart catheterization so has been cleared by cardiology but is having paroxysmal nocturnal dyspnea that is corrected with BiPAP therapy. The patient states she has had no episodes of dyspnea during the day. It only happens at night. This could be likely secondary to anxiety. The patient is in no respiratory distress during the evaluation. Denies any chest pain, abdominal pain, nausea, vomiting, or diarrhea. She is currently on nasal cannula and tolerating well. REVIEW OF SYSTEMS: A 10-point review of systems was conducted. Pertinent as noted in the HPI, otherwise noncontributory. PAST MEDICAL HISTORY: As mentioned in the HPI, otherwise noncontributory. PAST SURGICAL HISTORY: Denies. ALLERGIES: Keflex, erythromycin, Demerol, Avelox, penicillin. SOCIAL HISTORY: A 60 pack-year history of smoking. No history of alcohol or illicit drugs. She lives with family. FAMILY HISTORY: Noncontributory. ACTIVE MEDICATIONS: Tylenol, albuterol, Cordarone, Eliquis, Lasix, Prinivil, Ativan, Solu-Medrol, Toprol, Afrin, Klor-Con, nasal spray. PHYSICAL EXAMINATION: Vital Signs: Temperature 98.4 degrees, heart rate 63, respiratory rate 16, blood pressure 91/40, oxygen saturation 98%. General: Awake, alert. Sitting up in bed. No acute distress noted. HEENT: Normocephalic and atraumatic. PERRL. Cardiovascular: Regular rate and rhythm. S1-S2 present. Chest: Reduced entry. Abdomen: Bowel sounds present in all quadrants. Extremities: Distal pulses palpable. No edema noted. Skin: Warm , dry, and intact. Neurologic: Alert and oriented x3. No focal deficits. LABS AND INVESTIGATIONS: Sodium 135, potassium 4.1, chloride 87, carbon dioxide 38, anion gap 10, BUN 34, creatinine 0.6. Chest x-ray performed on 02/20/2017 shows no improvement. ASSESSMENT AND PLAN: This is an 86-year-old, female with a past medical history as mentioned in the history of present illness that was admitted to the hospital for congestive heart failure exacerbation. COPD. Heart catheterization will not be pursued at this point. She is having paroxysmal nocturnal dyspnea that is corrected with BiPAP therapy, likely secondary to situational anxiety. She also has a history of atrial fibrillation but is currently in sinus rhythm. The patient will continue Eliquis, Lasix, and have a steroid taper. Further recommendations pending diagnostic studies. Discussed with son (Dr. Rice) the options to obtain a home Bipap machine. Thank you for the courtesy of this consult. Dictated by CRISTINO Banuelos for Gilmar Rice MD cc: CRISTINO Banuelos MD Russell T. Barr, MD [id number]
[2017-02-21 10:38] LABS: AGAP 19; BUN 33 mg/dL (8-22); CALCIUM 8.7 mg/dL (8.8-10.2); CHLORIDE 85 mmol/L (98-107); COSMO 279; MAGNESIUM 2.3 mg/dL (1.5-2.7); POTASSIUM 4.4 mmol/L (3.5-5.1); SODIUM 134 mmol/L (136-145); TCO2 30 mmol/L (25-35)
[2017-02-21 13:45] LABS: ALLEN TEST NO; BE 16.9 mmoll (-3.0-3.0); BLOOD TYPE ARTERIAL; DRAW SITE R BRACHIAL; METHB 0.8 % (0.0-1.5); O2(CT) 15.9 mL/dL (15.0-23.0); PO2(98.6) 120 mmHg (60-100); SAMPLE BLOOD; SAO2 99.5 % (95.0-100.0); THB 11.5 g/dL (11.5-17.4); pH(98.6) 7.51 (7.35-7.45)
[2017-02-21 13:51] LABS: MODALITY CANNULA; PCO2(98.6) 53 mmHg (35-45)
[2017-02-22] MEDS: ALBUTEROL NEB INH PRN ×4 (02:35→21:20)
[2017-02-22 04:47] LABS: ALLEN TEST YES; BE 14.3 mmoll (-3.0-3.0); BLOOD TYPE ARTERIAL; DRAW SITE R RADIAL; O2(CT) 18.4 mL/dL (15.0-23.0); PO2(98.6) 120 mmHg (60-100); SAMPLE BLOOD; SAO2 99.5 % (95.0-100.0); THB 13.4 g/dL (11.5-17.4); pH(98.6) 7.48 (7.35-7.45)
[2017-02-22 04:49] LABS: MODALITY CANNULA; PCO2(98.6) 54 mmHg (35-45)
[2017-02-22] MEDS: SOLU-MEDROL IV SCH ×2 (09:27→20:32)
[2017-02-22] MEDS: KLOR-CON PO SCH (09:28)
[2017-02-22] MEDS: LASIX PO SCH ×2 (09:28→20:32)
[2017-02-22] MEDS: CORDARONE PO SCH (09:28)
[2017-02-22] MEDS: TOPROL XL PO SCH ×2 (09:28→20:32)
[2017-02-22] MEDS: ELIQUIS PO SCH ×2 (09:28→20:32)
[2017-02-22] MEDS: PRINIVIL PO SCH ×2 (09:28→20:32)
[2017-02-22 10:13] LABS: AGAP 12; BUN 33 mg/dL (8-22); CALCIUM 8.7 mg/dL (8.8-10.2); CHLORIDE 86 mmol/L (98-107); COSMO 278; MAGNESIUM 2.3 mg/dL (1.5-2.7); POTASSIUM 4.5 mmol/L (3.5-5.1); SODIUM 132 mmol/L (136-145); TCO2 34 mmol/L (25-35)
[2017-02-23] MEDS: ALBUTEROL NEB INH PRN ×5 (03:08→23:15)
[2017-02-23] MEDS: PRINIVIL PO SCH ×2 (08:21→20:39)
[2017-02-23] MEDS: KLOR-CON PO SCH (08:21)
[2017-02-23] MEDS: LASIX PO SCH ×2 (08:21→20:39)
[2017-02-23] MEDS: CORDARONE PO SCH (08:21)
[2017-02-23] MEDS: TOPROL XL PO SCH ×2 (08:21→20:39)
[2017-02-23] MEDS: ELIQUIS PO SCH ×2 (08:21→20:39)
--- NOTE | 2017-02-23 12:12 | EKG Report ---
Test Performed on : 02/23/2017 11:31:59 AM Test Reason : CP Blood Pressure : / mmHG Vent. Rate : 058 BPM Atrial Rate : 058 BPM P-R Int : 192 ms QRS Dur : 076 ms QT Int : 420 ms P-R-T Axes : 081 083 079 degrees QTc Int : 412 ms Sinus bradycardia. Anteroseptal infarct (cited on or before 27-DEC-2016) Abnormal ECG When compared with ECG of 18-FEB-2017 06:18, premature atrial complexes. are no longer present Vent. rate has decreased BY 30 BPM T wave inversion now evident in Anterior leads Nonspecific T wave abnormality no longer evident in Lateral leads QT has shortened Confirmed by Aníbal VICK, Javier Suarez ([id number]) on 02/26/2017 12:38:39 PM
[2017-02-23] MEDS ORDERED: KLONOPIN PO SCH (21:00)
[2017-02-24] MEDS: ALBUTEROL NEB INH PRN (03:40)
[2017-02-24] MEDS: KLOR-CON PO SCH (09:56)
[2017-02-24] MEDS: ELIQUIS PO SCH (09:56)
--- NOTE | 2017-02-24 11:40 | DISCHARGE SUMMARY ---
ADMISSION DATE: 02/16/2017 DISCHARGE DATE: 02/24/2017 FINAL DIAGNOSES: 1. Acute exacerbation of chronic systolic and diastolic congestive heart failure secondary to #2. 2. Aortic stenosis and mitral regurgitation. 3. Chronic obstructive pulmonary disease. 4. Paroxysmal atrial fibrillation. 5. History of atrial arrhythmias. 6. Essential hypertension. HISTORY OF PRESENT ILLNESS: Ms. Lewis is an 86-year-old woman with a history of COPD, congestive heart failure and paroxysmal atrial arrhythmias who presented to the emergency room with 3-4 day history of worsening shortness of breath and increasing pedal edema. In the emergency room she was markedly dyspneic and with minimal response to a DuoNeb treatment was placed on BiPAP which had helped her in the recent past. PHYSICAL EXAMINATION: General: Revealed a petite elderly female on BiPAP. Vital Signs: Fairly unremarkable except a blood pressure of 172/130 and respirations of 40. She was tachycardic with a pulse of 140. Chest Exam: Diffuse expiratory rhonchi. Cardiovascular: Regular tachycardia. Abdomen: Soft, nontender. Extremities: Mild pedal edema. HOSPITAL COURSE: She was admitted to the medical floor and treated with intravenous Lasix. Chest x-ray indicated both COPD and some fluid overload with reticulonodular interstitial opacity throughout both lungs. Curly B lines on the left and some cardiac enlargement. Radiologist felt she had some pulmonary fibrosis with superimposed pulmonary edema. Small bilateral pleural effusions were noted. The following morning, she was somewhat improved and off BiPAP. Her heart rate was down to normal. Blood pressure 102/50. The following night she had an episode of atrial fibrillation again with rapid ventricular response and was transferred to ICU, started on amiodarone drip and an echocardiogram demonstrated both the mitral regurgitation which was known, and fairly moderate to severe aortic stenosis with a calculated valve area of 0.8 square cm. With aggressive management of her congestive heart failure with JOSELIN inhibitors, diuretics and management of her arrhythmias with increased beta-shena and amiodarone, her condition steadily improved and she was transferred to the CICU. She was seen in consultation by Dr. Rice of Pulmonary Critical Care and will follow up with him after discharge as he is looking into getting BiPAP equipment for her at home. She continued to have epi,sodic dyspnea at night despite fairly good oxygen saturation readings. Her arterial blood gases showed minimal CO2 retention with a baseline pH of 7.48 pCO2 54, PO2 120 on 3 L nasal cannula. At time of discharge, her room air saturation was acceptable at 93-94% under optimal conditions. I feel she will still benefit from nocturnal O2 at home and most of the time during the day. She was started on clonazepam 0.5 mg at bedtime for suspected anxiety and this seemed to help significantly. She is discharged in improved condition. She will return to see Dr. Rice and Dr. Madera for Pulmonary and Cardiology followup, and also to return to my office in 1-2 weeks. DISCHARGE MEDICATIONS: 1. Acetaminophen 650 q.4 hours p.r.n. for pain. 2. Albuterol 1/2 strength nebulizer treatments q.i.d. p.r.n. 3. Amiodarone 200 mg daily. 4. Eliquis 2.5 mg twice a day. 5. Furosemide 40 mg twice a day. 6. Lisinopril 10 mg twice a day. 7. Metoprolol succinate ER 50 mg at bedtime. 8. Potassium chloride 20 mEq daily. 9. Clonazepam 0.5 mg at bedtime. 10. She is to stopped her aspirin and [facility] CD. cc: Jay Osorio MD
[2017-02-24 11:48] VITALS: BP 102/41
== END 2017-02-24 12:00 | disposition home health service (06) ==
LOC: ED 23:22 → SUATTDRO 02-16 02:57 → 4N 02-16 02:57 → 3S 02-16 20:56
PROVIDERS: ADMIT Internal Medicine; ATTEND Internal Medicine

== ENCOUNTER 2017-03-04 20:27 | Inpatient (IN) ==
[2017-03-04] MEDS ORDERED: LASIX IV ONE (20:41)
[2017-03-04] MEDS ORDERED: LASIX ONE (20:43)
[2017-03-04] MEDS ORDERED: DUONEB (A & A) ONE (20:45)
[2017-03-04 20:55] LABS: ALLEN TEST YES; BE 0.6 mmoll (-3.0-3.0); BLOOD TYPE ARTERIAL; DRAW SITE R RADIAL; METHB 0.9 % (0.0-1.5); O2(CT) 17.4 mL/dL (15.0-23.0); PO2(98.6) 84 mmHg (60-100); SAMPLE BLOOD; SRATE 4 BPM; pH(98.6) 7.27 (7.35-7.45)
[2017-03-04 20:56] LABS: MODALITY BI PAP
[2017-03-04 20:58] LABS: PCO2(98.6) 63 mmHg (35-45)
[2017-03-04] MEDS ORDERED: DUONEB (A & A) INH ONE (21:03)
[2017-03-04] MEDS ORDERED: NITROGLYCERIN TOP ONE (21:04)
[2017-03-04 21:21] LABS: MANUAL DIFF NEEDED? NO
[2017-03-04 21:22] LABS: BASO% 0.5 % (0.0-0.8); EOS# 0.33 X1000 (0.0-0.7); EOS% 2.3 % (0.0-10.0); HEMATOCRIT 40.8 % (37.0-47.0); HEMOGLOBIN 13.4 g/dL (12.0-16.0); IMM GRAN# 0.06 X1000 (0.0-0.04); IMM GRAN% 0.4 % (0.0-0.5); LYMPH# 4.36 X1000 (1.2-3.4); LYMPH% 29.9 % (20.5-51.1); MCH 32.8 PG (27-31); MCHC 32.8 g/dL (33-37); MONO# 1.15 X1000 (0.11-0.59); MONO% 7.9 % (1.7-9.3); MPV 11.6 FL (7.4-10.4); PLT 307 X1000 (130-400); RBC 4.08 XMIL (4.2-5.4)
[2017-03-04 21:51] LABS: ALBUMIN 4.1 g/dL (3.5-5.0); POTASSIUM 4.3 mmol/L (3.5-5.1); TOTAL BILIRUBIN 0.19 mg/dL (0.20-1.00); TOTAL PROTEIN 7.6 g/dL (6.3-8.3)
--- NOTE | 2017-03-04 22:00 | Diag Imaging Result Doc PS360 ---
EXAM: CHEST-PORTABLE INDICATION: resp distress TECHNIQUE: One view COMPARISON: 02/20/2017 FINDINGS: There are increased interstitial markings diffusely throughout both lungs. This is similar to the previous study but may have worsened slightly. There is probably a component of interstitial edema and pulmonary fibrosis. There is no discrete pleural fluid collection or pneumothorax. The central vasculature appears prominent suggesting pulmonary venous congestion. There is also hilar prominence. Hilar lymphadenopathy cannot be excluded. Cardiac silhouette is stable. IMPRESSION: 1.Increased interstitial markings diffusely that appear to be slightly more prominent than the previous study. 2.Prominent darlene. Hilar lymphadenopathy cannot be excluded. Electronically signed by Mauro Chilel 03/04/2017 9:58 PM
[2017-03-04] MEDS ORDERED: ATIVAN IV ONE (22:38)
--- NOTE | 2017-03-04 22:44 | PROVIDER DOCUMENTATION ---
This chart was entered by Tab Myles Scribe, acting as scribe for Parker Bagley MD. HPI-Respiratory General - General Stated Complaint: SOB Time Seen by Provider: 03/04/17 20:35 Source: patient, EMS, RN notes reviewed, old records Allergies/Adverse Reactions: Patient Allergies Allergy/AdvReac Type Severity Reaction Status Date / Time cephalexin monohydrate * Allergy SHORTNESS Verified 03/04/17 21:01 [From Keflex] OF BREATH erythromycin base Allergy SWELLING Verified 03/04/17 21:01 meperidine HCl * Allergy SHORTNESS Verified 03/04/17 21:01 [From Demerol] OF BREATH moxifloxacin HCl * Allergy SHORTNESS Verified 03/04/17 21:01 [From Avelox] OF BREATH Penicillins Allergy SWELLING Verified 03/04/17 21:01 Home Medications: Home Medication List Medication Instructions Recorded Confirmed Last Taken Type Acetaminophen [Tylenol] 650 mg PO Q4H PRN PRN #0 tablet 02/24/17 03/04/17 Unknown Rx Albuterol [Albuterol Neb] 1.25 mg INH Q4H PRN PRN #120 neb 02/24/17 03/04/17 Rx Amiodarone [Cordarone] 200 mg PO DAILY #30 tablet 02/24/17 03/04/17 03/03/17 Rx Apixaban [Eliquis] 2.5 mg PO BID #60 tablet 02/24/17 03/04/17 03/03/17 Rx Clonazepam [Klonopin] 0.5 mg PO QHS #30 tablet 02/24/17 03/04/17 03/03/17 Rx Furosemide [Lasix] 40 mg PO BID #60 tablet 02/24/17 03/04/17 03/03/17 Rx LISINOpril [Prinivil] 10 mg PO BID #60 tablet 02/24/17 03/04/17 03/03/17 Rx Metoprolol Succinate E.r. [Toprol 50 mg PO QHS #30 tablet 02/24/17 03/04/17 Rx Xl] Potassium Chloride E.r. [Klor-Con] 20 meq PO DAILY tablet 02/24/17 03/04/17 Rx Saline Nasal [place] [[place] Nasal 0 ml LAURA PRN PRN #0 bottle 02/24/17 03/04/17 Unknown Rx [place]] Ipratropium/Albuterol INH 1 puff INH RTQ6H 03/04/17 03/04/17 03/04/17 History [Combivent Respimat Inhaler] - History of Present Illness-Resp Nature of Presenting Problem: Pt is a 86 yowf who presents to ER with CC of shortness of breath. 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 Pt was discharged on 02/24/2017 after being admitted on 02/16/2017 for COPD exacerbation and CHF. Pt states that she was sent home on 40 lasix x2/day, but reports that she has been taking 80 lasix2/day instead. Pt also had an electrocardiogram that showed a 0.8cm^2 aortic valve. Quality of Pain: reports: none Severity in ED: reports: moderate, severe Onset/Duration: reports: unsure (Pt states "several hours ago") Timing: reports: still present, getting worse Episode Frequency: occasional episodes Associated Symptoms: reports: shortness of breath, short of breath, sweaty. denies: sinus pain, sore throat, wheezing Similar Symptoms Previously?: Yes Recently seen or treated by another doctor?: Yes Review of Systems - Adult - REVIEW OF SYSTEMS - ADULT ROS:: unobtainable per condition Constitutional: reports: fatique Eyes: reports: no symptoms reported Ears, Nose, Mouth & Throat: reports: no symptoms reported Cardiovascular: reports: edema. denies: chest pain, irregular heart rate, palpitations, poor circulation, syncope Respiratory: reports: shortness of breath. denies: chronic cough, cough, dyspnea on exertion, excessive sputum production, hemoptysis, pleurisy, wheezing Past History - Adult - PAST MEDICAL HISTORY-ADULT Review of Records: reports: Nursing Assessment Review, Medications Reviewed Cardiovascular: reports: HTN Respiratory: reports: asthma, COPD - PRIOR SURGERIES/PROCEDURES Surgical/Procedure History: reports: none - IMMUNIZATION STATUS Childhood Immunizations: See Nurse Assessment Flu Vaccine: See Nurse Assessment Physical Exam-General - CONSTITUTIONAL General Appearance: appears well, alert, moderate distress, severe distress, thin - RESPIRATORY Respiratory: chest non-tender, lungs clear, normal breath sounds, no pleuratic chest pain, respiratory distress, decreased breath sounds (poor air flow, no wheezing). negative: no respiratory distress, wheezing - CARDIOVASCULAR Cardiovascular: normal peripheral pulses, regular rate, rhythm, other (HTN (177/ 137)). negative: bradycardia, tachycardia, irregularly irregular - MUSCULOSKELETAL Extremity: normal range of motion, non-tender, normal gait, normal inspection, no calf tenderness, normal capillary refill, pelvis stable, swelling (bilateral ankle pitting edema). negative: no pedal edema, deformity, erythema, inflammation, tenderness - SKIN Integumentary: diaphoresis. negative: ecchymosis, erythema, laceration(s) - PSYCHIATRIC Psych/Mental Status: normal thought content, normal thought process, oriented x 3, anxious. negative: normal mood/affect Progress - PLAN OF CARE/RESULTS Progress/Plan/Lab Results: Vital Signs - 8 hr 03/04/17 20:30 03/04/17 20:56 03/04/17 21:42 Temperature 98.2 F Pulse Rate 90 89 93 H Respiratory Rate 21 28 H Blood Pressure 177/137 177/137 177/137 O2 Sat by Pulse Oximetry 91 L 100 98 Laboratory Results - last 24 hr 03/04/17 03/04/17 03/04/17 20:30 20:30 20:30 WBC 14.60 H RBC 4.08 L Hgb 13.4 Hct 40.8 MCV 100.0 H MCH 32.8 H MCHC 32.8 L RDW Std Deviation 14.0 Plt Count 307 MPV 11.6 H Immature Gran % (Auto) 0.4 Neut % (Auto) 59.0 Lymph % (Auto) 29.9 Hudspeth % (Auto) 7.9 Eos % (Auto) 2.3 Baso % (Auto) 0.5 Immature Gran # (Auto) 0.06 H Neut # (Auto) 8.62 H Lymph # (Auto) 4.36 H Hudspeth # (Auto) 1.15 H Eos # (Auto) 0.33 Baso # (Auto) 0.08 Specimen Type Sample Site pH pCO2 pO2 HCO3 Base Excess Oxyhemoglobin ABG O2 Sat (Calculated) ABG O2 Saturation ABG Carboxyhemoglobin ABG Methemoglobin Wilbert Test A-a O2 Difference Total Hemoglobin Lactate Blood Gas Modality Spontaneous Rate FiO2 % Inspiratory BiPAP Expiratory BiPAP Sodium 134 L Potassium 4.3 Chloride 87 L Carbon Dioxide 29 Anion Gap 18 BUN 20 Creatinine 0.9 Estimated GFR/1.73 m2 59 BUN/Creatinine Ratio 22 Glucose 215 H Calculated Osmolality 277 Calcium 9.0 Total Bilirubin 0.19 L AST 23 ALT 20 Alkaline Phosphatase 126 H Troponin T < 0.010 Total Protein 7.6 Albumin 4.1 Globulin 3.5 Albumin/Globulin Ratio 1.2 03/04/17 20:52 WBC RBC Hgb Hct MCV MCH MCHC RDW Std Deviation Plt Count MPV Immature Gran % (Auto) Neut % (Auto) Lymph % (Auto) Hudspeth % (Auto) Eos % (Auto) Baso % (Auto) Immature Gran # (Auto) Neut # (Auto) Lymph # (Auto) Hudspeth # (Auto) Eos # (Auto) Baso # (Auto) Specimen Type ARTERIAL Sample Site R RADIAL pH 7.27 L pCO2 63 H* pO2 84 HCO3 25.3 Base Excess 0.6 Oxyhemoglobin 94.8 L ABG O2 Sat (Calculated) 17.4 ABG O2 Saturation 98.0 ABG Carboxyhemoglobin 2.30 ABG Methemoglobin 0.9 Wilbert Test YES A-a O2 Difference 194.0 Total Hemoglobin 13.0 Lactate 4.50 H Blood Gas Modality BI PAP Spontaneous Rate 4 FiO2 % 50.0 Inspiratory BiPAP 12.0 Expiratory BiPAP 5.0 Sodium Potassium Chloride Carbon Dioxide Anion Gap BUN Creatinine Estimated GFR/1.73 m2 BUN/Creatinine Ratio Glucose Calculated Osmolality Calcium Total Bilirubin AST ALT Alkaline Phosphatase Troponin T Total Protein Albumin Globulin Albumin/Globulin Ratio Orders Category Date Time Status DNR [Resuscitation Status] Routine Care 03/04/17 21:05 Ordered CHEST-PORTABLE [RAD] Stat Exams 03/04/17 21:02 Completed ABG [RESP] Routine Lab 03/04/17 20:52 Completed CBC WITH ELECTRONIC DIFF [HEME] Stat Lab 03/04/17 20:30 Completed COMPREHENSIVE METABOLIC PANEL [CHEM] Stat Lab 03/04/17 20:30 Completed TROPONIN T Stat Lab 03/04/17 20:30 Completed Albuterol 2.5MG/Ipratrop 0.5MG [Duoneb (A & A)] Med 03/04/17 21:03 Discontinued 3 ml INH NOW ONE Albuterol 2.5MG/Ipratrop 0.5MG [Duoneb (A & A)] Med 03/04/17 20:45 Discontinued 9 ml .ROUTE .STK-MED ONE Furosemide [Lasix] Med 03/04/17 20:43 Discontinued 40 mg .ROUTE .STK-MED ONE Furosemide [Lasix] Med 03/04/17 20:41 Discontinued 40 mg IV NOW ONE Lorazepam [Ativan] Med 03/04/17 22:38 Once 1 mg IV NOW ONE Nitroglycerin Med 03/04/17 21:04 Discontinued 1 inch TOP NOW ONE Aerosol Treatments Routine Oth 03/04/17 21:04 Active Aerosol Treatments Stat Oth 03/04/17 21:04 Active 2050: After discussing End of Life plans, pt states that she does not want to be put on a ventilator or resuscitated; Pt told her nurse that she wants everything taken off of her (Bipap and monitor), and wants to go home so she can there. Result Diagrams: 03/04/17 20:30 03/04/17 20:30 - EKG 1 Time of EKG reading by physician:: 20:32 EKG Read and Signed by:: Parker Bagley EKG Interpretation (*Must complete 3 of following elements*): Abnormal ( Nonspecific ST abnormality) Rate: 89 Rhythm: NSR - XRAY 1 XRAY: Bilateral XRAY Study: Chest Impression: See EMR Report XRAY Interpretation: Diffuse pulmonary fibrosis - Dr. Bagley - CONSULTS/PCP/HOSPITALIST Notification #1 *Consult/PCP/Hospitalist*: Dr. Hernadez (Hospitalist) Time Discussed: 22:35 Consult Disposition: Admit Departure - Departure Date of Disposition Decision: 03/04/17 Time of Disposition Decision: 22:42 DIAGNOSIS: COPD exacerbation CHF (congestive heart failure) Qualifiers: Congestive heart failure type: combined Congestive heart failure chronicity: acute on chronic Qualified Code(s): I50.43 - Acute on chronic combined systolic (congestive) and diastolic (congestive) heart failure Disposition: ADMITTED INPATIENT 09 Certified Medical Emergency: Emergent Condition: Poor Referrals and Follow-Ups: None,PCP [Primary Care Provider] - - Critical Care Note This patient required my direct & personal management of CC.: Yes Total Time (mins): 45 Critical Care Statement: This patient required my direct personal management to treat or rule out processes, the absence of which, could potentiallly result in sudden, clinically significant life or limb threatening deterioration. This chart was documented by the indicated scribe, (Tab Myles Scribe) and accurately reflects the services I performed and decisions made by me, Parker Bagley MD, as attested by the provider's signature.
[2017-03-05] MEDS: SOLU-MEDROL IV SCH ×3 (00:32→16:49)
[2017-03-05] MEDS: DUONEB (A & A) INH SCH ×6 (03:28→22:36)
--- NOTE | 2017-03-05 04:16 | HISTORY AND PHYSICAL ---
PRIMARY CARE PHYSICIAN: Dr. Osorio. CHIEF COMPLAINT: Shortness of breath. HISTORY OF PRESENT ILLNESS: This is an 86-year-old female with a history of COPD on home oxygen, severe mitral valve regurgitation, and recurrent heart failure. Had presented to the emergency department again with complaint of shortness of breath. She was evaluated in the ER. She was somewhat hypoxic. She was put on BiPAP and she did have improvement. Due to her presenting symptoms, it was thought that she would need hospitalization for further management. At the time of my examination, she had denied any headache, fever, chills, chest pain, hemoptysis, or melena but complained of shortness of breath. PAST MEDICAL HISTORY: Includes COPD on home oxygen, recurrent heart failure, hypertension, severe mitral regurgitation, atrial arrhythmia. PAST SURGICAL HISTORY: None. ALLERGIES: To Keflex, erythromycin, Demerol, Avelox, penicillin. CURRENT MEDICATIONS: List in the MAR. SOCIAL HISTORY: A 60+ pack year history of smoking. States that she just quit recently. Denies any history of alcohol or illicit drug use. FAMILY HISTORY: No history of coronary disease. REVIEW OF SYSTEMS: Twelve point review of systems listed as in the HPI. Other systems negative. PHYSICAL EXAMINATION: GENERAL: Cooperative, friendly female. She is resting more comfortably now. VITAL SIGNS: Temperature 98.2 degrees, pulse 90, respirations 21, blood pressure 177/137, saturating 91%. HEENT: Atraumatic, normocephalic. Extraocular movements intact. NECK: No masses. CHEST: Bibasilar rales. CARDIOVASCULAR: Regular rate and rhythm. ABDOMEN: Soft. Positive bowel sounds. EXTREMITIES: No edema. NEUROLOGIC: She is awake, alert, oriented x2. : No bladder distention. SKIN: Warm. LABORATORIES AND STUDIES: ABG shows pH of 7.27, pCO2 of 63, PO2 of 84, bicarb 25. WBCs 14.6, hemoglobin 13.4, hematocrit 40.8, platelets 307,000. Sodium 134, potassium 4.3, chloride 87, CO2 is 29, BUN is 20, creatinine 0.9, glucose is 215. ASSESSMENT: This is an 86-year-old female with a history of chronic obstructive pulmonary disease, recurrent heart failure, and atrial arrhythmias who had presented to the emergency department with a 1-day history of worsening shortness of breath. She was put on BiPAP. She did have improvement. Subsequently, she will need hospitalization for management. 1. Acute chronic obstructive pulmonary disease exacerbation. 2. Recurrent heart failure. 3. Severe mitral valve regurgitation. 4. Hypertension. PLAN: 1. We will admit patient to [facility]. 2. Continue patient on BiPAP. 3. Continue with Solu-Medrol. 4. We will start patient on gentle diuresis. 5. Monitor blood pressure and resume antihypertensive agent. 6. Put patient on DVT prophylaxis with SCDs. 7. Continue to follow and reassess. cc: Boris Hernadez MD
[2017-03-05 05:42] LABS: BASO% 0.1 % (0.0-0.8); HEMATOCRIT 31.8 % (37.0-47.0); HEMOGLOBIN 10.5 g/dL (12.0-16.0); IMM GRAN# 0.03 X1000 (0.0-0.04); IMM GRAN% 0.2 % (0.0-0.5); LYMPH# 0.42 X1000 (1.2-3.4); LYMPH% 3.2 % (20.5-51.1); MANUAL DIFF NEEDED? YES; MCH 32.4 PG (27-31); MCV 98.1 FL (81-99); MONO# 0.12 X1000 (0.11-0.59); MONO% 0.9 % (1.7-9.3); MPV 10.4 FL (7.4-10.4); NEUT% 95.6 % (42.2-75.2); PLT 243 X1000 (130-400); RBC 3.24 XMIL (4.2-5.4)
[2017-03-05 06:17] LABS: AGAP 11; BUN 21 mg/dL (8-22); CALCIUM 8.7 mg/dL (8.8-10.2); CHLORIDE 93 mmol/L (98-107); COSMO 278; POTASSIUM 4.4 mmol/L (3.5-5.1); SODIUM 136 mmol/L (136-145); TCO2 32 mmol/L (25-35)
[2017-03-05 07:15] LABS: BANDS 4 % (0-1); LYMPHS 3 % (21-51); NRBC 2 % (0-0)
[2017-03-05] MEDS: LASIX IV SCH ×2 (08:36→20:21)
[2017-03-05] MEDS: PRINIVIL PO SCH ×2 (08:36→20:20)
[2017-03-05] MEDS: CORDARONE PO SCH (08:36)
[2017-03-05] MEDS: ELIQUIS PO SCH ×2 (08:36→20:20)
--- NOTE | 2017-03-05 08:58 | PROGRESS NOTE ---
DATE: 03/05/2017 She reports that she just got short of breath yesterday. She does have a BiPAP machine at home, but got more short of breath. She is Dr. Osorio's patient. An 86-year-old with a history of COPD, on home oxygen, severe mitral regurgitation, recurrent heart failure. Presented to the emergency department again with a complaint of shortness of breath. Was evaluated in the ER, and was somewhat hypoxic. Put on BiPAP, and did have improvement. Due to her presenting symptoms it was thought she needed hospitalization for further management. Past medical history of COPD on home O2, recurrent heart failure, hypertension, severe mitral regurgitation, atrial arrhythmia. Suspect underlying coronary artery disease, but we have not been able do a left heart catheterization to my knowledge. She feels much better this morning. Requested to go home. PHYSICAL EXAMINATION: Vital signs: Temperature is 98.6 degrees, pulse 67, respirations 16, blood pressure 90/35. HEENT: Pupils are equal, round. Lungs: Clear in all lung gonzalez. Cardiovascular: Regular rhythm and rate, without murmur or S3. General: Weight 103 pounds. Output 400 mL last night. LABORATORY STUDIES: From this morning, white count 12,980, hematocrit 31, platelet count 243,000. Sodium 136, potassium 4.4, chloride 93, BUN 21, creatinine 0.8, calcium 8.7. Chest x-ray on presentation: Increased interstitial markings, diffuse, did appear slightly more prominent than previous study. Prominent darlene. Hilar lymphadenopathy cannot be excluded. ASSESSMENT AND PLAN: 1. [id number] obstructive pulmonary disease, underlying severe mitral regurgitation. Suspect she has underlying coronary artery disease. She denied any chest pain. Breathing much better now. Continue her BiPAP, bronchodilators. 2. She has a history of atrial fibrillation, is on Eliquis 2.5 b.i.d. 3. There is an element of bronchospasm. She is on methylprednisone. She got 1 dose of Lasix IV. She is actually getting 40 mg of Lasix q.12 hours. We will continue that for now. The chest x-ray suggested pulmonary venous hypertension. 4. Lastly, an element of anxiety. She is on Klonopin 0.5 mg at bedtime. She is also on amiodarone 200 mg daily. cc: MD Jay Garland MD
[2017-03-05] MEDS: ATIVAN PO PRN (16:39)
[2017-03-05] MEDS: TYLENOL PO PRN (18:01)
[2017-03-05] MEDS: KLONOPIN PO SCH (20:20)
[2017-03-05] MEDS: TOPROL XL PO SCH (20:20)
[2017-03-06] MEDS: SOLU-MEDROL IV SCH ×2 (00:09→17:52)
[2017-03-06] MEDS: DUONEB (A & A) INH SCH ×2 (03:24→07:38)
--- NOTE | 2017-03-06 04:09 | PROGRESS NOTE ---
DATE: 03/05/2017 ADDENDUM: Looking back at the chart, she has severe aortic stenosis. She has normal left ventricular function with left ventricular hypertrophy. She has severe mitral regurgitation, mild tricuspid regurgitation, mild to moderate pulmonary hypertension, borderline biatrial enlargement, mild right ventricular enlargement with reduced right ventricular systolic function. cc: MD Jay Garland MD
--- NOTE | 2017-03-06 05:31 | EKG Report ---
Test Performed on : 03/05/2017 12:56:55 PM Test Reason : CHEST PAIN Blood Pressure : / mmHG Vent. Rate : 091 BPM Atrial Rate : 091 BPM P-R Int : 220 ms QRS Dur : 084 ms QT Int : 378 ms P-R-T Axes : 101 080 095 degrees QTc Int : 464 ms Sinus rhythm. with 1st degree AV block. Marked ST abnormality, possible anterior subendocardial injury Abnormal ECG When compared with ECG of 04-MAR-2017 20:32, (Unconfirmed) MD interval has increased ST now depressed in Inferior leads ST now depressed in Anterior leads T wave inversion now evident in Anterolateral leads QT has lengthened Confirmed by Aníbal VICK, Javier Suarez ([id number]) on 03/06/2017 7:57:46 AM
[2017-03-06] MEDS: ATIVAN PO PRN ×2 (06:32→23:30)
--- NOTE | 2017-03-06 06:57 | EKG Report ---
Test Performed on : 03/04/2017 8:32:23 PM Test Reason : NO ORDER IN Discrete Sport Blood Pressure : / mmHG Vent. Rate : 089 BPM Atrial Rate : 089 BPM P-R Int : 138 ms QRS Dur : 092 ms QT Int : 318 ms P-R-T Axes : 099 084 091 degrees QTc Int : 386 ms Normal sinus rhythm. Nonspecific ST abnormality Abnormal ECG When compared with ECG of 23-FEB-2017 11:31, Vent. rate has increased BY [address] elevation now present in Anterior leads T wave inversion no longer evident in Anterior leads Unconfirmed Result
[2017-03-06] MEDS: CORDARONE PO SCH (08:48)
[2017-03-06] MEDS: ELIQUIS PO SCH ×2 (08:48→20:08)
[2017-03-06] MEDS: PRINIVIL PO SCH ×2 (08:48→20:08)
[2017-03-06] MEDS: LASIX IV SCH (08:52)
--- NOTE | 2017-03-06 09:30 | CONSULTATION ---
DATE OF CONSULTATION: 03/06/2017 REQUESTING PHYSICIAN: Dr. Jay Osorio REASON FOR CONSULTATION: The patient has significant valvular disease, recurrent congestive heart failure, recurrent admissions to the hospital. CHIEF COMPLAINT: Shortness of breath. HISTORY OF PRESENT ILLNESS: Ms. Lewis is a pleasant 86-year-old female who presented on 03/04/2017 to the emergency room with increasing dyspnea. The patient was found to be in respiratory failure. Her white count was 14,000. Her blood gases showed a pO2 of 84, pCO2 was 63, pH was 7.27. They put her on BiPAP system. Her BUN and creatinine were normal. They did a chest x-ray on her at the time of initial encounter that shows increased interstitial markings diffusely that appear to be slightly more prominent than the previous study, prominent hilar lymphadenopathy. She was given BiPAP support, Lasix, and she has improved. This morning, she is breathing more comfortably. She is sitting up in the chair. She is on oxygen nasal cannula. She has no chest pains. She is feeling a whole lot better. PAST MEDICAL HISTORY: Positive for paroxysmal atrial fibrillation, COPD, hypertension. She has had pulmonary artery hypertension. She has had systolic heart failure in the past. Echocardiograms from the recent past showed on 12/27/2016 that she had normal ejection fraction at 65% to 70% with severe mitral regurgitation and moderate tricuspid regurgitation. Then on 02/17/2017 after a second admission to the hospital, they did another echocardiogram that showed severe aortic stenosis by continuity equation, her peak gradient across the aortic valve was 51, mean gradient was 24. The valve area was calculated at 0.8 cm sq. Ejection fraction was hyperdynamic. The patient has no significant surgical history. She had previous PFTs going back as long as 40 years ago that show severe obstructive lung disease which corrects to moderate with bronchodilators. HOME MEDICATIONS: Metoprolol ER 50 mg at bedtime, lisinopril 10 twice a day, ipratropium inhaler every 6 hours, furosemide 40 mg twice a day, Klonopin 0.5 mg at bedtime, Eliquis 2.5 twice a day, amiodarone 200 daily, albuterol inhaler. ALLERGIES: Keflex, erythromycin, meperidine, Avelox and penicillin. REVIEW OF SYSTEMS: She is chronically short of breath. No chest pains. No syncope. No edema. SOCIAL HISTORY: She is a . She has had 2 children, a daughter . She lives with granddaughter. The patient used to be a smoker, she has not smoked in a long time. She is a retired [employer]. PHYSICAL EXAMINATION: Blood pressure is 97/52, temperature 97.6, pulse 70, respirations 16. She is awake, alert, oriented, elderly, frail looking, in no distress. Nasal cannula noted. HEENT: Unremarkable. Chest: Diminished breath sounds bilaterally. No obvious wheezes. Heart sounds are regular and rhythmic, somewhat distant, with a systolic murmur over the aortic area and at the apex of the left ventricle, 3/6 intensity. Abdomen is soft, nontender. No hepatomegaly. Extremities showed no edema. Pulses are diminished. Neurologic: Follows commands. Moves all 4 extremities. DIAGNOSTIC DATA: Hemoglobin is 10.5, hematocrit 31.8. Sodium is 136, potassium 4.4, BUN is 21, creatinine 0.9. IMPRESSION: 1. The patient has presented to the hospital with recurrent congestive heart failure, respiratory distress, acute respiratory failure, hypercarbic. The etiology of her heart failure appears to be valvular disease since her ejection fraction is supranormal. Patient has severe aortic stenosis and severe mitral regurgitation reported on recent 2 D echocardiogram. 2. The patient has advanced chronic obstructive pulmonary disease with CO2 retention. 3. She may have coronary artery disease. Her 12-lead EKG shows sinus rhythm with a diffuse ST-T abnormality in precordial and lateral leads. Lots of artifact noted. 4. History of atrial arrhythmia. 5. History of hypertension. RECOMMENDATIONS: At this point in time, I would suggest to continue present medical therapy. The patient has clearly stated that she does not wish to have her life prolonged artificially. She does not want to consent to any further testing at this time. I had a long discussion with her, explaining that she may require a number of tests to determine her eligibility for aortic valve intervention. At this point in time, she declines to have any further testing, and she has made herself DNR. At this time, I agree with your initial medical therapy. We will be happy to arrange for a followup at the office. Thank you for the opportunity to participate in her evaluation. cc: MD Jay Morrison MD MTDD
[2017-03-06] MEDS: TYLENOL PO PRN ×2 (12:19→23:30)
[2017-03-06] MEDS: ALBUTEROL NEB INH PRN ×2 (19:31→23:11)
[2017-03-06] MEDS: TOPROL XL PO SCH (20:08)
[2017-03-06] MEDS: KLONOPIN PO SCH (20:08)
[2017-03-07] MEDS: SOLU-MEDROL IV SCH (05:14)
[2017-03-07] MEDS: TYLENOL PO PRN ×2 (07:57→12:57)
[2017-03-07] MEDS: ALBUTEROL NEB INH PRN ×3 (08:19→20:54)
[2017-03-07] MEDS ORDERED: PREDNISONE PO SCH (09:00)
--- NOTE | 2017-03-07 09:00 | Diag Imaging Result Doc PS360 ---
EXAM: CHEST-2 VIEWS HISTORY: CHF TECHNIQUE: COMPARISON: 03/04/2017 FINDINGS: The lungs are hyperexpanded. There is an increased AP diameter to the chest. The heart is not enlarged. Overall decrease in the lung infiltrates although infiltrates persist in the mid right lung. There may be underlying fibrosis. I believe there are tiny pleural effusions. IMPRESSION: 1. Emphysema 2. Persistent infiltrates although there has been partial clearing in the left lung. 3. The patient may have underlying fibrosis as well. Electronically signed by Misbah Anderson 03/07/2017 8:57 AM
[2017-03-07] MEDS: PRINIVIL PO SCH ×2 (09:05→20:14)
[2017-03-07] MEDS: ELIQUIS PO SCH ×2 (09:05→20:14)
[2017-03-07] MEDS: CORDARONE PO SCH (09:05)
[2017-03-07] MEDS: LASIX IV SCH (09:05)
[2017-03-07] MEDS ORDERED: TYLENOL PO PRN (13:07)
[2017-03-07] MEDS: ATIVAN PO PRN ×2 (13:18→20:14)
[2017-03-07] MEDS: KLONOPIN PO SCH (20:14)
[2017-03-07] MEDS: TOPROL XL PO SCH (20:14)
[2017-03-08 05:34] LABS: AGAP 6; BUN 26 mg/dL (8-22); CALCIUM 8.5 mg/dL (8.8-10.2); CHLORIDE 93 mmol/L (98-107); COSMO 275; POTASSIUM 4.1 mmol/L (3.5-5.1); SODIUM 135 mmol/L (136-145); TCO2 36 mmol/L (25-35)
[2017-03-08] MEDS: ALBUTEROL NEB INH PRN ×3 (09:11→19:13)
[2017-03-08] MEDS: LASIX IV SCH (09:55)
[2017-03-08] MEDS: PREDNISONE PO SCH (09:55)
[2017-03-08] MEDS: PRINIVIL PO SCH ×2 (09:55→20:40)
[2017-03-08] MEDS: ELIQUIS PO SCH ×2 (09:55→20:40)
[2017-03-08] MEDS: CORDARONE PO SCH (09:55)
[2017-03-08] MEDS: ATIVAN PO PRN ×2 (15:10→20:40)
[2017-03-08] MEDS: LASIX PO SCH (16:54)
[2017-03-08] MEDS: TOPROL XL PO SCH (20:40)
[2017-03-08] MEDS: KLONOPIN PO SCH (20:40)
[2017-03-09] MEDS: ALBUTEROL NEB INH PRN (05:37)
[2017-03-09] MEDS: LASIX PO SCH (06:20)
[2017-03-09] MEDS: PREDNISONE PO SCH (08:13)
[2017-03-09] MEDS: ELIQUIS PO SCH (08:13)
[2017-03-09] MEDS: PRINIVIL PO SCH ×2 (08:13→08:14)
[2017-03-09] MEDS: CORDARONE PO SCH (08:13)
[2017-03-09 11:12] VITALS: BP 92/40
--- NOTE | 2017-03-09 15:17 | DISCHARGE SUMMARY ---
ADMISSION DATE: 03/05/2017 DISCHARGE DATE: 03/09/2017 FINAL DIAGNOSES: 1. Acute pulmonary edema secondary to #2. 2. Acute exacerbation of chronic diastolic and systolic congestive heart failure secondary to #3. 3. Severe aortic stenosis. 4. Chronic obstructive pulmonary disease with questionable exacerbation. 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 She presented to the emergency room with sudden shortness of breath and was found to be hypoxemic. Chest x-ray showed worsening congestive heart failure. She responded promptly to bilevel pressure support ventilation. PHYSICAL EXAMINATION: Blood pressure 177/137. Bibasilar crackles in both lung gonzalez. Regular rhythm without tachycardia and no peripheral edema LABORATORY DATA: ABG pH 7.27, pCO2 ,PO2 84. White blood count 62183. Hemoglobin and hematocrit were normal. HOSPITAL COURSE: She was admitted and treated with both intravenous Lasix and also nebulized bronchodilators and intravenous steroids. After reviewing her chest x-ray. I felt that it was primarily cardiac in origin and rapidly scaled back the exacerbation of COPD medications. She slowly improved but continued to request BiPAP support at night while asleep. During the day, she did well on nasal cannula oxygen with acceptable saturations on 2 L. She was seen in consultation by her regional rehabilitation director, Dr. Christopher. We both spent considerable time explaining to her the futility of medical care for aortic stenosis and the possibility that transcatheter aortic valve replacement could extend her life meaningfully by several years. Without this she probably has a life expectancy of 1-3 months. She considered this but was quite adamant that she did not want any further testing and was not ready for "nature to take its course." She seems quite competent and I see no reason to pursue this further. I have informed her that I expected her to require frequent readmissions for treatment and eventually she would not respond to BiPAP and Lasix. I have requested palliative care evaluation in preparation for future hospice care but this is pending at the time of discharge. FOLLOWUP: She is return to my office in 1 week for followup. DISCHARGE MEDICATIONS: Albuterol 1/2 strength q.4 hours p.r.n. for dyspnea. Lasix 40 mg twice a day at 6 a.m. and 4 p.m., prednisone 10 mg daily for 7 days with breakfast. Klonopin 0.5 mg at bedtime for anxiety. Amiodarone 200 mg once a day. Eliquis 2.5 mg twice a day. Lisinopril 10 mg twice a day. Metoprolol 50 mg at bedtime. Potassium chloride 20 mEq daily. [place] nasal spray daily as needed. Combivent Respimat inhaler 1 puff q.6 hours as needed for shortness of breath. cc: Jay Osorio MD
== END 2017-03-09 12:17 | disposition home health service (06) ==
LOC: ED 20:27 → SUATTDRO 03-05 00:01 → 3S 03-05 00:01 → SUPCPDRO 03-05 00:01 → 3S 03-05 00:11
PROVIDERS: ADMIT Internal Medicine; ATTEND Internal Medicine

== ENCOUNTER 2017-03-29 19:15 | Inpatient (IN) ==
[2017-03-29] MEDS ORDERED: NITROGLYCERIN TOP ONE ×2 (19:21→19:40)
[2017-03-29] MEDS ORDERED: NITROGLYCERIN ONE (19:23)
[2017-03-29] MEDS ORDERED: LASIX IV ONE (19:40)
[2017-03-29] MEDS ORDERED: DUONEB (A & A) INH ONE (19:42)
[2017-03-29] MEDS ORDERED: DUONEB (A & A) ONE (19:43)
[2017-03-29 20:30] LABS: ALLEN TEST YES; BE 0.1 mmoll (-3.0-3.0); BLOOD TYPE ARTERIAL; DRAW SITE L RADIAL; METHB 1.1 % (0.0-1.5); O2(CT) 15.1 mL/dL (15.0-23.0); PO2(98.6) 97 mmHg (60-100); SAMPLE BLOOD; SAO2 99.2 % (95.0-100.0); SRATE 4 BPM; THB 11.1 g/dL (11.5-17.4); pH(98.6) 7.32 (7.35-7.45)
[2017-03-29 20:32] LABS: MODALITY BI PAP; PCO2(98.6) 52 mmHg (35-45)
[2017-03-29 20:36] LABS: MANUAL DIFF NEEDED? NO; URINE CULTURE NEEDED? NO; URINE MICRO REVIEW NEEDED? NO; URINE SOURCE CLEAN CATCH
[2017-03-29 20:49] LABS: BASO% 0.3 % (0.0-0.8); BILIRUBIN URINE NEGATIVE (NEGATIVE); BLOOD URINE NEGATIVE (NEGATIVE); COLOR STRAW; EOS# 0.32 X1000 (0.0-0.7); EOS% 2.8 % (0.0-10.0); GLUCOSE URINE NEGATIVE (NEGATIVE); HEMATOCRIT 36.3 % (37.0-47.0); HEMOGLOBIN 12.1 g/dL (12.0-16.0); IMM GRAN# 0.03 X1000 (0.0-0.04); IMM GRAN% 0.3 % (0.0-0.5); LEUKOCYTES URINE NEGATIVE (NEGATIVE); LYMPH# 0.94 X1000 (1.2-3.4); LYMPH% 8.3 % (20.5-51.1); MCH 33.3 PG (27-31); MCHC 33.3 g/dL (33-37); MONO# 0.65 X1000 (0.11-0.59); MONO% 5.7 % (1.7-9.3); MPV 10.5 FL (7.4-10.4); NEUT% 82.6 % (42.2-75.2); NITRITE URINE NEGATIVE (NEGATIVE); PLT 324 X1000 (130-400); PROTEIN URINE NEGATIVE (NEGATIVE); RBC 3.63 XMIL (4.2-5.4); SP GRAVITY URINE 1.003; TURBIDITY URINE CLEAR (CLEAR); UROBILINOGEN URINE NORMAL (NORMAL)
[2017-03-29 20:52] LABS: UR EPITHELIAL CELLS <10 /HPF (<10); URINE BACTERIA NEGATIVE /HPF; URINE RBC <10 /HPF (<10); URINE WBC <10 /HPF (<10)
[2017-03-29 21:29] LABS: AGAP 17; ALBUMIN 3.9 g/dL (3.5-5.0); ALKALINE PHOSPHATASE 167 U/L (32-104); BUN 20 mg/dL (8-22); CALCIUM 9.6 mg/dL (8.8-10.2); CHLORIDE 88 mmol/L (98-107); COSMO 273; GOT 54 U/L (10-30); GPT 46 U/L (10-36); POTASSIUM 4.7 mmol/L (3.5-5.1); SODIUM 133 mmol/L (136-145); TCO2 28 mmol/L (25-35); TOTAL BILIRUBIN 0.26 mg/dL (0.20-1.00); TOTAL PROTEIN 7.7 g/dL (6.3-8.3)
[2017-03-29] MEDS ORDERED: MORPHINE IV ONE (22:27)
[2017-03-29] MEDS ORDERED: LASIX 100 MG in NS 90 ML IV SCH (22:27)
[2017-03-29] MEDS ORDERED: TOPROL XL PO SCH (22:27)
[2017-03-29] MEDS ORDERED: ZOFRAN IV PRN (22:27)
[2017-03-29] MEDS: DUONEB (A & A) INH SCH (23:38)
--- NOTE | 2017-03-30 01:26 | HISTORY AND PHYSICAL ---
HISTORY OF PRESENT ILLNESS: Ms. Ruben Lewis is an 86-year-old lady with a past medical history of severe aortic stenosis, mitral valve regurgitation, and a history of COPD on home O2, and diastolic heart failure. She also has a history of hypertension and atrial arrhythmia. She was recently admitted to our facility on 03/05/2017 for an exacerbation of diastolic heart failure. She was diuresed at that time, and a Cardiology consult was called. The working supervisor told her about her valvular heart disease, and that she will require a lot of extensive workup before she could qualify as a candidate. Way back at that time, the patient said she did not want to pursue any aggressive treatment, and made herself a do not resuscitate candidate. She comes in today complaining of sudden shortness of breath at rest with orthopnea and PND. She denies any cough or any chest pain, any palpitations, or any other anginal symptoms. Denies any antecedent leg swelling. Denies any extremity redness or pain. No fever or chills. On arrival to the ER, she was in severe respiratory distress. Her respiratory rate was in the high 30s. Heart rate was in the 120s. She was also very hypoxic on 2 L nasal cannula. She was then suddenly switched to BiPAP, and her O2 saturations have improved significantly. She is 96%. The patient denies any GI or complaints. She denies any change in her diet or medications. She is fully aware of her long-term prognosis being poor, as Dr. Osorio has discussed this with her. REVIEW OF SYSTEMS: Twelve system review is negative. Positive findings as per HPI. ALLERGIES: She is allergic to Demerol, Keflex, erythromycin, penicillins, and Avelox. HOME MEDICATIONS: 1. DuoNeb q.6. 2. Amiodarone 200 mg daily. 3. Apixaban 2.5 mg daily. 4. Clonazepam 0.5 mg at bedtime. 5. Metoprolol succinate 50 mg at bedtime. 6. Lisinopril 10 mg b.i.d. PAST SURGICAL HISTORY: The patient denies any at this time. FAMILY HISTORY: No diabetes. One of her family members had lung cancer. SOCIAL HISTORY: [id number] smoking, recently quit. No alcohol or illicit drug use. LAB WORK: Her chest x-ray does show increased vascular markings, with some coarse interstitial changes. White count 7000, hemoglobin and hematocrit 12 and 36, platelets 224, 000. Sodium 133, BUN 20, creatinine 0.8. Glucose 172, AST 54, ALT 46, alkaline phosphatase 167. All of these are elevated since her last admission a month ago. Urinalysis is clear. Blood gas 7.32, pCO2 52, PO2 97, was on BiPAP at 50% FiO2. EKG pending at the time I saw her. PHYSICAL EXAMINATION: GENERAL: Thin and somewhat anorexic woman, who is alert and oriented to person, place, and time. She has a BiPAP mask on her face, makes it a little difficult to hear her. VITAL SIGNS: Temperature 97.1 degrees, pulse 108, respirations 20, blood pressure 180/92. HEENT: Head is normocephalic, atraumatic. She is in respiratory distress. She is acyanotic. Eyes PERRLA, EOMI. Anicteric, not pale. NECK: Supple. She has no visible JVD. No bruits or thyromegaly. CHEST: Bibasilar crepitations at bases. Scattered expiratory wheezes. Decreased air entry in both lung gonzalez. CARDIOVASCULAR: First and second heart sounds heard. Distant and difficult to hear due to the noise from the BiPAP machine, but the rhythm is regular. Cannot appreciate any murmur. ABDOMEN: Scaphoid, soft, nontender. No organomegaly. Bowel sounds are hypoactive. RECTAL: Deferred at this time. EXTREMITIES: Trace edema in the lower extremities. Pulses distally are somewhat diminished, but are symmetrical. No clubbing or peripheral cyanosis. Motor and sensory normal. No focal deficits. No asterixis or tremor. SKIN: Intact. No breakdown or lesions noted of the skin. VASCULAR: Exam is grossly normal. ASSESSMENT: 1. [id number] respiratory failure secondary to chronic obstructive pulmonary disease and acute diastolic heart failure. 2. Acute diastolic heart failure, secondary to valvular heart disease. 3. Valvular heart disease, i.e. severe aortic stenosis and mitral regurgitation. 4. Chronic obstructive pulmonary disease. 5. Hypertensive heart disease. PLAN: At this time, the patient will continue on BiPAP. Check ABG in the morning. Will transfer to the service of Dr. Osorio, who I will leave to his discretion to reconsult Cardiology for alternative plan of care. From my discussion with the patient, she reiterates that she wants to be a level 1 DNR. I personally do not think that the patient will want to proceed with any advanced investigative procedures that may lead to a TAVR. For now, I will support patient with DuoNebs and aggressive diuresis. We need to be cautious diuresing this patient because there should be some degree of preload to overcome this patient's aortic stenosis. We will check BMP q.12 hours to ensure she does not go into acute renal failure while on diuresis. I do think hospice would need to be discussed with this patient. She does not want to proceed with aggressive treatment. Check chest films daily to document objective improvement of this patient. Critical care >40mins cc: MD Jay Metzger MD MTDD
[2017-03-30 01:51] LABS: URINE CULTURE NEEDED? NO; URINE MICRO REVIEW NEEDED? NO; URINE SOURCE CATH
[2017-03-30 02:14] LABS: BILIRUBIN URINE NEGATIVE (NEGATIVE); BLOOD URINE NEGATIVE (NEGATIVE); COLOR STRAW; GLUCOSE URINE NEGATIVE (NEGATIVE); LEUKOCYTES URINE NEGATIVE (NEGATIVE); NITRITE URINE NEGATIVE (NEGATIVE); PROTEIN URINE NEGATIVE (NEGATIVE); SP GRAVITY URINE 1.005; TURBIDITY URINE CLEAR (CLEAR); UROBILINOGEN URINE NORMAL (NORMAL)
[2017-03-30 02:15] LABS: UR EPITHELIAL CELLS <10 /HPF (<10); URINE BACTERIA NEGATIVE /HPF; URINE RBC <10 /HPF (<10); URINE WBC <10 /HPF (<10)
[2017-03-30] MEDS ORDERED: LEVOPHED 8 MG in D5 1/2 NS 250 ML IV SCH (02:45)
[2017-03-30] MEDS: DUONEB (A & A) INH SCH (02:50)
[2017-03-30 05:33] LABS: MANUAL DIFF NEEDED? NO
[2017-03-30 05:47] LABS: BASO% 0.1 % (0.0-0.8); EOS# 0.09 X1000 (0.0-0.7); EOS% 1.2 % (0.0-10.0); HEMOGLOBIN 9.9 g/dL (12.0-16.0); IMM GRAN# 0.02 X1000 (0.0-0.04); IMM GRAN% 0.3 % (0.0-0.5); LYMPH# 0.83 X1000 (1.2-3.4); LYMPH% 10.6 % (20.5-51.1); MCH 32.7 PG (27-31); MONO# 0.73 X1000 (0.11-0.59); MONO% 9.3 % (1.7-9.3); MPV 10.6 FL (7.4-10.4); NEUT% 78.5 % (42.2-75.2); PLT 269 X1000 (130-400); RBC 3.03 XMIL (4.2-5.4)
--- NOTE | 2017-03-30 06:24 | EKG Report ---
Test Performed on : 03/30/2017 05:45:24 AM Test Reason : Heart Failure Admission Blood Pressure : / mmHG Vent. Rate : 053 BPM Atrial Rate : 051 BPM P-R Int : 000 ms QRS Dur : 080 ms QT Int : 490 ms P-R-T Axes : 000 041 070 degrees QTc Int : 459 ms Undetermined rhythm Possible Anterior infarct , age undetermined Abnormal ECG When compared with ECG of 29-MAR-2017 21:05, (Unconfirmed) Current undetermined rhythm precludes rhythm comparison, needs review ST no longer depressed in Inferior leads ST no longer depressed in Lateral leads T wave inversion no longer evident in Inferior leads Unconfirmed Result
[2017-03-30 06:27] LABS: AGAP 11; BUN 18 mg/dL (8-22); CALCIUM 8.5 mg/dL (8.8-10.2); CHLORIDE 94 mmol/L (98-107); COSMO 273; MAGNESIUM 2.2 mg/dL (1.5-2.7); POTASSIUM 4.3 mmol/L (3.5-5.1); SODIUM 135 mmol/L (136-145); TCO2 30 mmol/L (25-35)
--- NOTE | 2017-03-30 07:44 | Diag Imaging Result Doc PS360 ---
EXAM: CHEST-PORTABLE HISTORY: SOB TECHNIQUE: AP upright portable at 1930 COMMENT: There is increased interstitial and alveolar opacity, the latter primarily in the right upper lobe. The pleural effusions have improved since the previous examination of 03/07/2017, however. There is also been improvement in the perihilar opacity on the right side particularly in the lower portion of the right upper lobe. IMPRESSION: Worsened interstitial pulmonary edema. Electronically signed by Darrell Sevilla 03/30/2017 7:42 AM
[2017-03-30 07:55] LABS: ALLEN TEST YES; BE 8.8 mmoll (-3.0-3.0); BLOOD TYPE ARTERIAL; DRAW SITE R RADIAL; O2(CT) 13.1 mL/dL (15.0-23.0); PCO2(98.6) 42 mmHg (35-45); PO2(98.6) 95 mmHg (60-100); SAMPLE BLOOD; SAO2 99.8 % (95.0-100.0); THB 9.5 g/dL (11.5-17.4)
[2017-03-30 07:56] LABS: MODALITY CANNULA
[2017-03-30] MEDS ORDERED: PRINIVIL PO SCH (09:00)
[2017-03-30] MEDS: ALBUTEROL NEB INH PRN ×3 (09:03→19:16)
[2017-03-30] MEDS: ALDACTONE PO SCH (09:15)
[2017-03-30] MEDS: ELIQUIS PO SCH ×2 (09:15→20:54)
[2017-03-30] MEDS: CORDARONE PO SCH (09:15)
[2017-03-30 16:56] LABS: AGAP 9; BUN 18 mg/dL (8-22); CALCIUM 8.6 mg/dL (8.8-10.2); CHLORIDE 91 mmol/L (98-107); COSMO 265; SODIUM 131 mmol/L (136-145); TCO2 31 mmol/L (25-35)
[2017-03-30] MEDS: LASIX PO SCH (17:16)
[2017-03-30] MEDS ORDERED: ATIVAN PO PRN (19:14)
[2017-03-30] MEDS: PRINIVIL PO SCH (20:54)
[2017-03-30] MEDS: TOPROL XL PO SCH (20:54)
[2017-03-30] MEDS ORDERED: KLONOPIN PO SCH (21:00)
[2017-03-31 07:38] VITALS: BP 101/38
[2017-03-31] MEDS: PRINIVIL PO SCH (08:22)
[2017-03-31] MEDS: TOPROL XL PO SCH (08:22)
[2017-03-31] MEDS: ALDACTONE PO SCH (08:23)
[2017-03-31] MEDS: LASIX PO SCH (08:23)
[2017-03-31] MEDS: CORDARONE PO SCH (08:23)
[2017-03-31] MEDS: ELIQUIS PO SCH (08:23)
[2017-03-31] MEDS ORDERED: LASIX PO SCH (09:00)
[2017-03-31] MEDS ORDERED: PRINIVIL PO SCH (09:00)
--- NOTE | 2017-03-31 09:49 | CONSULTATION ---
DATE OF CONSULTATION: 03/31/2017 HISTORY OF PRESENT ILLNESS: Cardiology was consulted for heart failure, known aortic stenosis, mitral regurgitation. Ms. Ruben Lewis is an 86-year-old lady with past medical history of significant valvular disease, recurrent congestive heart failure. She is admitted with increasing shortness of breath. She was recently admitted on multiple occasions, the last being on 03/05/2017. With exacerbation of diastolic heart failure, she was diuresed, and since then she is back with increasing shortness of breath in addition to orthopneic and PND. She denies chest pain. There is no palpitation. There is no dizziness or syncope. On arrival in the ER, she was noted to be in severe respiratory distress and was given Lasix. At the time of my examination, the patient was more comfortable, did not complain of any chest pain. Shortness of breath has improved significantly. REVIEW OF SYSTEMS: A 14 point review of system was done. GI system: There is no history of nausea, vomiting, diarrhea. There is no history of hematemesis or melena. Central nervous system: No focal weakness to suggest a CVA, TIA. system: There is no dysuria or hematuria. PAST MEDICAL HISTORY: 1. Diastolic heart failure. 2. Paroxysmal atrial fibrillation. 3. COPD. 4. Hypertension. 5. Severe mitral regurgitation. Moderate tricuspid regurgitation. 6. Aortic stenosis. Aortic valve was with a mean gradient of 24 mmHg. She has severe aortic stenosis 0.8 square cm. 7. Hypertension. HOME MEDICATIONS: 1. DuoNebs. 2. Amiodarone 200. 3. 4. Clonazepam. 5. Metoprolol. 6. Lisinopril. PAST SURGICAL HISTORY: Negative. PHYSICAL EXAMINATION: Vital Signs: Blood pressure when she came in was 180; at time of my examination, blood pressure was 97/48. Cardiovascular system: Normal jugular venous pressure. First and second heart sounds were heard. There was ejection systolic murmur in the aortic and mitral areas respectively. Respiratory system: Examination revealed bibasilar inspiratory crepitations. Abdomen: Soft, nontender. There was no guarding or rigidity. Bowel sounds were heard. Central nervous system: Alert and was moving all 4 extremities. Extremities: Examination of extremities revealed no pedal edema. HEENT: Atraumatic, normocephalic. Pupils were equal and reacting to light. LABORATORY EXAMINATION: Sodium 135, potassium 4.3, BUN 18, creatinine 0.7. IMAGING: Chest x-ray: Interstitial edema. Magnesium 2.2. ASSESSMENT AND PLAN: 1. Ms. Ruben Lewis is an 86-year-old lady with history of severe mitral regurgitation, normal left ventricular systolic function, severe aortic stenosis, paroxysmal atrial fibrillation, hypertension. She is admitted with orthopnea, PND. Since starting on diuretics, patient has improved significantly. The patient is do not resuscitate. 2. I would recommend continuing her current medications as an outpatient. Would recommend giving her low-dose diuretics as well in addition to spironolactone. 3. Continue with metoprolol. 4. She is on lisinopril at home. I have not made any changes. 5. She has paroxysmal atrial fibrillation. She is on Eliquis and amiodarone. I have not made any changes to her medications. Thank you for the consult. We will follow hospital course. cc: MD Jay Bates MD
--- NOTE | 2017-04-01 06:18 | DISCHARGE SUMMARY ---
ADMISSION DATE: 03/29/2017 DISCHARGE DATE: 03/31/2017 FINAL DIAGNOSES: 1. Acute pulmonary edema secondary to #2. 2. Acute exacerbation of chronic systolic and diastolic congestive heart failure secondary to #3. 3. Severe aortic stenosis. 4. Chronic obstructive pulmonary disease. HISTORY OF PRESENT ILLNESS: This is one of several recent admissions for acute pulmonary edema for this 86-year-old retired [employer] with a history of recurrent pulmonary edema. She presented to the emergency room with sudden shortness of breath and was found to be hypoxemic. Chest x-ray showed worsening congestive heart failure. She was treated in the emergency room with intravenous Lasix and bilevel pressure support ventilation with prompt relief of her symptoms. PHYSICAL EXAMINATION: Vital Signs: She is afebrile. Blood pressure was 180/83. Respiratory rate was 32. Heart rate 111. General Appearance: Thin, almost anorexic woman who was alert and oriented. Bibasilar crackles were noted. Lungs: With a few scattered expiratory wheezes. Cardiac: Regular tachycardia. Initially, the noise of the BiPAP machine obscured murmurs but, subsequently, her 3/6 systolic ejection murmur from aortic stenosis was easily auscultated. Abdomen: Soft and nontender. HOSPITAL COURSE: She was admitted to ICU and continued on BiPAP but by the next morning had essentially resolved, and she was comfortable on 2-3 L of nasal cannula oxygen. Her vital signs had returned to normal and was noted to be borderline hypotensive. Her initial blood gas showed slight CO2 retention but followup ABG was pH 7.5, pCO2 of 42, PO2 of 95 on 3 L nasal cannula. She had a good diuresis and was transferred to the floor where she continued to improve. At discharge, she was back to her baseline status and is eager to return home. We again discussed the possibility of further cardiac testing as she might be a candidate for transcatheter aortic valve replacement but she is quite adamant that she is not interested in further testing or treatment and "I am ready to go". She is discharged in an improved condition and is to return to my office in 1-2 weeks for followup. cc: Jay Osorio MD
== END 2017-03-31 09:38 | disposition home health service (06) ==
LOC: ED 19:15 → SUATTDRO 22:01 → ICU 22:01 → 4N 03-30 17:00
PROVIDERS: ADMIT Internal Medicine; ATTEND Internal Medicine

== ENCOUNTER 2017-04-07 20:22 | Inpatient (IN) ==
[2017-04-07] MEDS ORDERED: DUONEB (A & A) INH ONE (20:46)
--- NOTE | 2017-04-07 22:14 | Diag Imaging Result Doc PS360 ---
CHEST-PORTABLE - 04/07/2017 INDICATION: copd TECHNIQUE: COMPARISON: 03/29/2017 FINDINGS: There is significant worsening pulmonary vascular congestion with diffuse bilateral interstitial infiltrates and curly B lines. This is compatible with pulmonary edema. Heart size is borderline. There are probably small effusions. IMPRESSION: Pulmonary edema and small pleural effusions. Worsened since prior. Electronically signed by Jimmie Viveros 04/07/2017 10:12 PM
[2017-04-07 22:36] LABS: BASO% 0.2 % (0.0-0.8); EOS# 0.05 X1000 (0.0-0.7); EOS% 0.4 % (0.0-10.0); HEMATOCRIT 33.8 % (37.0-47.0); HEMOGLOBIN 11.2 g/dL (12.0-16.0); IMM GRAN# 0.06 X1000 (0.0-0.04); IMM GRAN% 0.5 % (0.0-0.5); LYMPH# 0.62 X1000 (1.2-3.4); LYMPH% 4.8 % (20.5-51.1); MANUAL DIFF NEEDED? NO; MCH 32.9 PG (27-31); MCHC 33.1 g/dL (33-37); MCV 99.4 FL (81-99); MONO# 0.59 X1000 (0.11-0.59); MONO% 4.6 % (1.7-9.3); MPV 10.1 FL (7.4-10.4); NEUT% 89.5 % (42.2-75.2); PLT 408 X1000 (130-400)
[2017-04-07 22:49] LABS: ALLEN TEST YES; BE 6.7 mmoll (-3.0-3.0); BLOOD TYPE ARTERIAL; DRAW SITE R RADIAL; METHB 1.5 % (0.0-1.5); MODALITY BI PAP; O2(CT) 14.6 mL/dL (15.0-23.0); PCO2(98.6) 44 mmHg (35-45); PO2(98.6) 70 mmHg (60-100); SAMPLE BLOOD; SAO2 97.1 % (95.0-100.0); pH(98.6) 7.46 (7.35-7.45)
[2017-04-07 23:18] LABS: AGAP 11; BUN 22 mg/dL (8-22); CALCIUM 8.9 mg/dL (8.8-10.2); CHLORIDE 89 mmol/L (98-107); COSMO 271; POTASSIUM 4.4 mmol/L (3.5-5.1); SODIUM 131 mmol/L (136-145); TCO2 31 mmol/L (25-35)
[2017-04-08] MEDS: LASIX IV SCH ×3 (01:35→23:15)
[2017-04-08 06:07] LABS: MANUAL DIFF NEEDED? NO
[2017-04-08 06:30] LABS: BASO% 0.2 % (0.0-0.8); EOS# 0.03 X1000 (0.0-0.7); EOS% 0.3 % (0.0-10.0); HEMATOCRIT 27.7 % (37.0-47.0); HEMOGLOBIN 9.1 g/dL (12.0-16.0); IMM GRAN# 0.02 X1000 (0.0-0.04); IMM GRAN% 0.2 % (0.0-0.5); LYMPH# 0.83 X1000 (1.2-3.4); LYMPH% 9.5 % (20.5-51.1); MCH 32.5 PG (27-31); MCHC 32.9 g/dL (33-37); MCV 98.9 FL (81-99); MONO% 9.2 % (1.7-9.3); NEUT% 80.6 % (42.2-75.2); PLT 352 X1000 (130-400)
[2017-04-08 06:37] LABS: AGAP 10; BUN 17 mg/dL (8-22); CALCIUM 8.2 mg/dL (8.8-10.2); CHLORIDE 96 mmol/L (98-107); COSMO 275; SODIUM 137 mmol/L (136-145); TCO2 31 mmol/L (25-35)
[2017-04-08] MEDS: ALDACTONE PO SCH (08:38)
[2017-04-08] MEDS: CORDARONE PO SCH (08:40)
[2017-04-08] MEDS: ELIQUIS PO SCH ×2 (08:40→20:07)
[2017-04-08] MEDS: PRINIVIL PO SCH ×2 (08:41→20:10)
--- NOTE | 2017-04-08 12:07 | HISTORY AND PHYSICAL ---
PRIMARY CARE PHYSICIAN: Jay Osorio MD. CHIEF COMPLAINT: Shortness of breath. HISTORY OF PRESENT ILLNESS: An 86-year-old female with a history of COPD, on home oxygen, atrial fibrillation, valvular disease, including aortic stenosis and mitral regurgitation, and anxiety disorder, who apparently had recurrent admissions for heart failure. Presents again with similar complaints of shortness of breath. She was found to have worsening pulmonary edema, and seemed to be in respiratory distress. She was put on BiPAP in the ED, and she had improvement. Due to her presenting symptoms, it was thought that she would need hospitalization for further management. At the time of my examination, she had denied any headache, fever, chills, chest pain, hemoptysis, melena, or complaint of shortness of breath. PAST MEDICAL HISTORY: COPD, on home oxygen, atrial fibrillation, mitral regurgitation, aortic stenosis, anxiety disorder. PAST SURGICAL HISTORY: None. ALLERGIES: Keflex, erythromycin, Demerol, Avelox. CURRENT MEDICATIONS: As in the medication reconciliation sheet. SOCIAL HISTORY: She is a former smoker. She denies any history of alcohol or illicit drug use. FAMILY HISTORY: No history of coronary artery disease. REVIEW OF SYSTEMS: Twelve point review of systems listed as in HPI. Other systems negative. PHYSICAL EXAMINATION: GENERAL: Cooperative, friendly female. She is resting more comfortably. She is currently on BiPAP. VITAL SIGNS: Temperature 97.5 degrees, pulse 79, respiration 24, blood pressure 190/74. HEENT: Atraumatic, normocephalic. Extraocular movements intact. NECK: No masses. CHEST: Bibasilar rales. CARDIOVASCULAR: Regular rate and rhythm. ABDOMEN: Soft. Positive bowel sounds. EXTREMITIES: No edema. NEUROLOGIC: She is awake, alert, oriented x3. GENITOURINARY: No bladder distention. SKIN: Warm. LABORATORIES AND STUDIES: WBC 12.93, hemoglobin 11.2, hematocrit 33.8, platelets 408,000. Sodium 131, potassium 4.4, chloride 89, CO2 31, BUN is 22, creatinine 0.8, glucose is 186. Chest x-ray shows pulmonary edema, worsened from prior exam. ASSESSMENT: This is an 86-year-old female with a history of heart failure, COPD, atrial fibrillation, and anxiety disorder, who presented again to the emergency department with a complaint of shortness of breath. Was found to be in heart failure. Due to her presenting symptoms, she would need hospitalization for further management. 1. Acute congestive heart failure exacerbation, diastolic dysfunction. 2. Severe aortic stenosis and mitral regurgitation. 3. Atrial fibrillation. 4. Chronic obstructive pulmonary disease. 5. Anxiety disorder. PLAN: 1. We will admit patient to [facility]. 2. We will continue patient on BiPAP. 3. We will consult Cardiology. 4. Continue gentle diuresis. 5. We will restart her home medications. 6. The patient on deep venous thrombosis prophylaxis with sequential compression devices. 7. We will continue to follow and reassess. cc: MD Jay Chang MD
--- NOTE | 2017-04-08 12:16 | CONSULTATION ---
DATE OF CONSULTATION: 04/08/2017 INDICATION FOR THE CONSULTATION: CHF, history of severe valvular disease. HISTORY OF PRESENT ILLNESS: Ms. Lewis is an 86-year-old white female who has had recent hospitalizations most recently with a discharge on the . She was diagnosed with congestive heart failure resultant from severe valvular disease involving severe aortic stenosis and severe mitral regurgitation. Over the time period of her multiple hospitalization she actually determined that she would not like to have any sort of intervention done. She has home health presently but does not have any hospice. She has decided to be DNR during previous hospitalizations. She has been more short of breath over the last couple of days and despite this her home oxygen therapy was not working to relieve this. She was compliant with her diuretics. PAST MEDICAL HISTORY: 1. Significant for paroxysmal atrial fibrillation maintained on Eliquis. 2. Significant COPD. 3. Hypertension. 4. Severe aortic stenosis diagnosed via an echo in February 2017 that showed a mean gradient of 24 with a valve area of 0.8 cm2. 5. Severe mitral regurgitation identified via echo in February 2017. SOCIAL HISTORY: She is a . She has 2 children. She previously smoked but has not in many years. 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 FAMILY HISTORY: Significant for hypertension. REVIEW OF SYSTEMS: A 10 system review of systems is negative except for those things mentioned in HPI. PHYSICAL EXAMINATION: She is afebrile. Heart rate is 63, blood pressure 117/45. Her I's and O's more recently shows a negative of 1430 mL during this hospitalization.General: No acute distress. She is pleasant. She is somewhat cachectic. HEENT: Oropharynx is moist. Poor dentition. Eye examination shows pink conjunctivae, white sclerae. Neck: Examination shows no obvious thyromegaly or thyroid tenderness. Cardiovascular: She sounds to be in a regular rate and rhythm. She has a 2/6 systolic murmur best heard at the right upper sternal border as well as a more prominent holosystolic murmur at the left lower sternal border area. No lower extremity edema. I did not hear an S3. Chest Examination: Notable for coarse breath sounds with somewhat reduced breath sounds throughout. She has no increased work of breathing presently. Abdomen: Soft, nontender, nondistended. No obvious organomegaly. Skin Exam: Warm and dry throughout without any rashes. Neurological: She is moving all extremities well. Cranial nerves 2-12 are intact without any sensation deficits. Psychiatric: Alert and oriented, pleasant. Normal mood and affect. PERTINENT DATA: Her chest x-ray demonstrated pulmonary edema with small pleural effusions. Her laboratory data this hospitalization shows a white count 8.7, hematocrit 27.7, platelet count 352,000. Her sodium is 137, potassium 4, BUN 17, creatinine 0.7. Her proBNP was 3360. Last check in that was March 08 and was 3024. ASSESSMENT: 1. Congestive heart failure with a valvular etiology. 2. Severe chronic obstructive pulmonary disease. PLAN: I would continue patient on current medications. Her blood pressure seems to be well controlled presently. She does seem to be diuresing. I have initiated a hospice consultation given the patient's previous decisions to be DNR and desire to not go through any further invasive evaluations. In addition she has had multiple recent hospitalizations indicating a limited ability to keep the patient out of the hospital without utilizing more extensive resources. cc: MD Jay Murray MD
--- NOTE | 2017-04-08 13:14 | PROGRESS NOTE ---
DATE: 04/08/2017 SUBJECTIVE: Ms. Lewis has a history of chronic respiratory failure with hypoxias secondary to severe COPD and congestive heart failure. She was admitted to [facility] with acute on chronic congestive heart failure secondary to combined diastolic and systolic dysfunction. Her EKG demonstrated significant worsening of the pulmonary vascular congestion with diffuse bilateral interstitial infiltrates and small effusions. Her initial blood gases demonstrated a pH of 7.46, pCO2 of 44, pO2 of 70 and an O2 saturation of 97%. Her initial ProBNP was 3360. She was placed on a salt and fluid restricted diet and has been aggressively diuresed with Lasix. She has had over 1400 mL of urine output since admission. She reports that she is breathing more comfortably but does continue with persistent dyspnea. Previous echocardiograms have demonstrated severe aortic stenosis. OBJECTIVE: Temperature is 98.7, pulse 63, respirations 18, blood pressure is 117/45. Cardiovascular: Regular rate and rhythm with a 2/6 systolic ejection murmur heard at the right upper sternal margin and a holosystolic murmur at the left lower sternal border. Lungs: Distant breath sounds with increased period of expiration and crackles in the bases. Abdomen: Soft and nontender with active bowel sounds. ASSESSMENT AND PLAN: Chronic respiratory failure secondary to acute on chronic congestive heart failure, secondary to combined diastolic and systolic dysfunction. We will continue a salt and fluid restricted diet. We will aggressively diurese with Lasix and follow strict I's and O's. I will repeat a chest x-ray in the morning. Over the past several months, Ms. Lewis has continued to decline clinically. She has a living will and does not want any heroic measures to be undertaken in the event of a cardiopulmonary arrest. A no code blue level 1 order has been established. She does not want to consider any invasive procedures at this time. This makes her sixth admission to [facility] this year with issues related to her underlying congestive heart failure. Dr. Osorio and Dr. Page have spoken to her in the past about Hospice care, and she is agreeable to Hospice care. We will make a referral to [facility]. cc: MD Jay Segura MD MTDD
[2017-04-08] MEDS: KLONOPIN PO SCH (20:07)
[2017-04-08] MEDS: TOPROL XL PO SCH (20:07)
[2017-04-09] MEDS: ALDACTONE PO SCH (08:55)
[2017-04-09] MEDS: CORDARONE PO SCH (08:55)
[2017-04-09] MEDS: ELIQUIS PO SCH ×2 (08:55→20:24)
[2017-04-09] MEDS: PRINIVIL PO SCH (08:56)
[2017-04-09] MEDS ORDERED: LASIX IV SCH (09:00)
--- NOTE | 2017-04-09 09:02 | PROGRESS NOTE ---
DATE: 04/09/2017 SUBJECTIVE: Ms. Lewis was admitted to [facility] with chronic respiratory failure secondary to severe chronic obstructive pulmonary disease and acute on chronic congestive heart failure secondary to combined diastolic and systolic dysfunction. Her echocardiogram shows severe aortic stenosis. We placed her on a salt and fluid restricted diet, and have been aggressively diuresing her. She is breathing more comfortably. O2 saturations are ranging from 92% to 96% on 3 L of O2. She has put out nearly 4 L of urine output since admission. OBJECTIVE: Vital Signs: Her blood pressure was a little bit low today at 90/36, temperature 98.1 degrees, pulse 62, respirations 18, BP 90/36. General: This is a chronically ill-appearing, 86- year-old lady in no apparent distress. CV: Regular rate and rhythm with a 2/6 systolic ejection murmur at the right sternal margin and a holosystolic murmur at the left sternal margin. Lungs: Distant breath sounds with increased period of expiration. Occasional crackles in the bases. Abdomen: Soft, nontender, with active bowel sounds. ASSESSMENT AND PLAN: Chronic respiratory failure with hypoxia secondary to acute on chronic congestive heart failure secondary to combined diastolic and systolic dysfunction. We will continue a salt and fluid restricted diet. I am going to back down on the Lasix to 40 mg IV daily. I will also reduce the lisinopril to 10 mg daily. I will repeat a chest x-ray today. Ms. Lewis has been hospitalized 7 times this calendar year. She continues to decline clinically. She was visited by [facility] yesterday and she is agreeable to hospice care at the time of discharge. cc: MD Jay Segura MD
[2017-04-09 09:22] LABS: AGAP 8; BUN 18 mg/dL (8-22); CALCIUM 8.8 mg/dL (8.8-10.2); CHLORIDE 95 mmol/L (98-107); COSMO 276; POTASSIUM 4.5 mmol/L (3.5-5.1); SODIUM 137 mmol/L (136-145); TCO2 34 mmol/L (25-35)
[2017-04-09] MEDS ORDERED: DUONEB (A & A) INH PRN (11:10)
[2017-04-09] MEDS ORDERED: ROXANOL CONC. LIQUID SL PRN (11:11)
--- NOTE | 2017-04-09 14:34 | PROGRESS NOTE ---
DATE: 04/09/2017 SUBJECTIVE: She reports she is feeling better. Breathing has improved. She has no chest pain. No orthopnea. PHYSICAL EXAMINATION: Vital signs: Afebrile, heart rate is 61, blood pressure 92/42. Her I's and O's for the course of the hospitalization have been -4.4 L with very limited intake noted. General: No acute distress. Cardiovascular: She is in a regular rate and rhythm. She has a 2/6 systolic murmur best heard at the right upper sternal border. She has no lower extremity edema. Chest: Exam is relatively clear although she has somewhat depressed breath sounds throughout. She has no increased work of breathing. Abdomen: Soft, nontender. PERTINENT DATA: Chemistry today shows sodium 137, potassium 4.5, BUN 18, creatinine 0.6. Her proBNP yesterday was 3360. ASSESSMENT: 1. Heart failure. 2. Aortic stenosis and severe mitral regurgitation. PLAN: I would continue with diuresis. The patient seems to be tolerating that well. I will recheck chemistries in the morning as well as a BNP. I have discussed hospice with the patient again and she agrees to proceed with that route. cc: MD Jay Murray MD
[2017-04-09] MEDS: DUONEB (A & A) INH PRN ×2 (15:13→19:29)
[2017-04-09] MEDS: KLONOPIN PO SCH (20:25)
[2017-04-09] MEDS: TOPROL XL PO SCH (20:25)
[2017-04-10] MEDS: DUONEB (A & A) INH PRN ×2 (03:48→07:48)
[2017-04-10 05:41] LABS: AGAP 6; BUN 13 mg/dL (8-22); CALCIUM 8.9 mg/dL (8.8-10.2); CHLORIDE 92 mmol/L (98-107); COSMO 272; POTASSIUM 4.1 mmol/L (3.5-5.1); SODIUM 134 mmol/L (136-145); TCO2 36 mmol/L (25-35)
--- NOTE | 2017-04-10 05:52 | EKG Report ---
Test Performed on : 04/07/2017 8:22:41 PM Test Reason : SOB Blood Pressure : / mmHG Vent. Rate : 079 BPM Atrial Rate : 066 BPM P-R Int : 000 ms QRS Dur : 078 ms QT Int : 344 ms P-R-T Axes : 000 081 072 degrees QTc Int : 394 ms Accelerated Junctional rhythm. Septal infarct (cited on or before 30-MAR-2017) Abnormal ECG When compared with ECG of 30-MAR-2017 05:46, Junctional rhythm. has replaced Atrial fibrillation. ST now depressed in Inferior leads QT has shortened Unconfirmed Result
[2017-04-10] MEDS ORDERED: ALDACTONE PO SCH (08:00)
[2017-04-10] MEDS: ALBUTEROL NEB INH SCH ×2 (08:01→15:17)
[2017-04-10] MEDS: ELIQUIS PO SCH (08:36)
[2017-04-10] MEDS: PRINIVIL PO SCH (08:37)
[2017-04-10] MEDS: CORDARONE PO SCH (08:37)
--- NOTE | 2017-04-10 08:46 | PROGRESS NOTE ---
DATE: 04/10/2017 SUBJECTIVE: Ms. Lewis reports she is feeling better today. OBJECTIVE: Vital signs: She is afebrile. Heart rate 58, blood pressure 92/34. Intake and output: Her I's and nose continue to be negative. She is negative a total of 3.9 L for the course of the hospitalization. General: She is in no acute distress. Cardiovascular: She sounds to be in a regular rate and rhythm with no murmur. She has no S3. She has no lower extremity edema. Chest: Clear bilaterally. She has no increased work of breathing. Abdomen: Soft, nontender, nondistended. She has no obvious organomegaly. Skin Exam: Warm and dry throughout. PERTINENT DATA: Sodium 134, potassium 4.1, BUN 13, creatinine 0.6. Her proBNP is 570 which is down from 3,360 on the . ASSESSMENT: Heart failure secondary to valvular abnormalities including severe aortic stenosis and severe mitral regurgitation. PLAN: Patient has previously stated that she does not want any aggressive interventions. Considering her frequent hospitalizations and severe cardiac disease we have involved hospice. I believe she is an appropriate candidate for discharge home today. I would stop her IV Lasix today which is currently at 40 mg. Previously at home she was on Lasix 40 mg b.i.d. and spironolactone 12.5 mg daily. She has been escalated in her spironolactone to 12.5 b.i.d. We will try putting her back on the furosemide orally at 40 mg b.i.d. and hopefully the escalated dose of spironolactone will improve her overall symptoms. From my standpoint, she is stable for discharge. cc: MD Jay Murray MD
[2017-04-10] MEDS ORDERED: LASIX PO SCH (09:00)
[2017-04-10 17:08] VITALS: BP 117/34
--- NOTE | 2017-04-11 15:23 | DISCHARGE SUMMARY ---
ADMISSION DATE: 04/08/2017 DISCHARGE DATE: 04/10/2017 FINAL DIAGNOSES: 1. Acute pulmonary edema secondary to #2. 2. Acute exacerbation of chronic systolic and diastolic congestive heart failure secondary to #3. 3. Severe aortic stenosis. 4. Chronic obstructive pulmonary disease. PRESENT ILLNESS: This is 1 of numerous recent admissions for acute pulmonary edema for this 86- year-old retired [employer] with a history of recurrent pulmonary edema. She presented to the emergency room with sudden shortness of breath and was found to be hypoxemic. Chest x-ray showed worsening of her congestive heart failure. She was treated in the emergency room with intravenous Lasix and bilevel pressure support ventilation with prompt relief of her symptoms. PHYSICAL EXAMINATION: Thin almost anorexic woman, alert, oriented. Basilar crackles were noted in both lungs. Rare scattered expiratory wheezes were noted as well. She has borderline tachycardia. She had 2 to 3/6 systolic ejection murmur at the right and left upper sternal borders unchanged. Abdomen: Was soft, nontender. HOSPITAL COURSE: She was admitted to the CICU and required BiPAP for several hours. Then thereafter she was comfortable on 2-3 L of nasal cannula oxygen. Her vital signs improved and she noted to be borderline hypotensive. Her initial proBNP was over 3000 but after diuresis that dropped to approximately 300. She was seen in consultation by Dr. Richard Page, Cardiology who agreed that since she does not want further aggressive measures such as an aortic valve replacement that she is an appropriate candidate for hospice care. I have discussed this with hospice nurses and they plan to see her soon and admit her. She was discharged in improved condition and to return to my office in 1-2 weeks. cc: Jay Osorio MD
== END 2017-04-10 18:41 | disposition hospice, home (50) ==
LOC: ED 20:22 → 3S 04-08 00:27 → SUATTDRO 04-08 00:27 → 3S 04-08 00:39
PROVIDERS: ADMIT Internal Medicine; ATTEND Internal Medicine